=== PATIENT | male | born 1935 | race Caucasian/White ===

== ENCOUNTER 2019-08-15 13:53 | Emergency (ER) | payer MEDICARE, OTHER ==
[~2019-08-15] VITALS: Ht 177.8 cm; Wt 83.2 kg
[~2019-08-15 13:53] MED LIST: ACID REDUCER PO; ASPI-1009 PO; ATOR40TA PO; BENA5TAB39 PO; CHOL200026 PO; GLIP5TAB26 PO; HYT1T PO; LEVO25TA7 PO; OMEG-15 PO; SOTA80TA PO; VITAMIN B12 SL; WARF3TAB27 PO
[2019-08-15 14:45] LABS: BASOPHILS # (AUTO) 0.1 X10'3 (0-0.2); BASOPHILS % (AUTO) 0.8 % (0-1); EOSINOPHILS # (AUTO) 0.1 X10'3 (0-0.9); EOSINOPHILS % (AUTO) 0.8 % (0-6); HEMATOCRIT 46.4 % (42.0-52.0); HEMOGLOBIN 15.5 g/dl (14.0-17.9); LYMPHOCYTES # (AUTO) 1.9 X10'3 (1.1-4.8); LYMPHOCYTES % (AUTO) 22.3 % (21-51); MEAN CORPUSCULAR HEMOGLOBIN 31.7 PG (27.0-31.0); MEAN CORPUSCULAR HGB CONC 33.3 g/dL (33.0-36.5); MEAN PLATELET VOLUME 10.4 FL (7.4-10.4); MONOCYTES # (AUTO) 0.8 X10'3 (0-0.9); MONOCYTES % (AUTO) 9.4 % (2-12); NEUTROPHILS # (AUTO) 5.8 X10'3 (1.8-7.7); NEUTROPHILS % (AUTO) 66.7 % (42-75); PLATELET COUNT 178 X10'3 (140-440); RED BLOOD COUNT 4.89 X10'6 (4.70-6.10); RED CELL DISTRIBUTION WIDTH 15.1 % (11.5-14.5); WHITE BLOOD COUNT 8.7 X10'3 (4.5-11.0)
[2019-08-15 14:56] LABS: ALANINE AMINOTRANSFERASE 41 U/L (12-78); ALBUMIN 3.4 G/DL (3.4-5.0); ALKALINE PHOSPHATASE 83 IU/L (46-116); ANION GAP 7 (8-16); ASPARTATE AMINO TRANSFERASE 29 U/L (10-37); BILIRUBIN,TOTAL 1.2 MG/DL (0.1-1.0); BLOOD UREA NITROGEN 38 MG/DL (7-18); BUN/CREATININE RATIO 18.8 (5.4-32.0); CALCIUM 8.6 MG/DL (8.5-10.1); CHLORIDE 99 MMOL/L (99-107); CREATININE 2.02 MG/DL (0.60-1.10); GLUCOSE 269 MG/DL (70-104); POTASSIUM 4.6 MMOL/L (3.5-5.1); SODIUM 136 MMOL/L (135-145); TOTAL CARBON DIOXIDE 30.3 MMOL/L (24-32); TOTAL PROTEIN 6.7 G/DL (6.4-8.2); eGFR 32 ML/MIN
[2019-08-15] MEDS ORDERED: ringers solution, lactated 1000ml IV soln IV ONE (18:10)
[2019-08-15 18:38] LABS: CLARITY,URINE CLEAR (Clear); COLOR,URINE YELLOW (Yellow); GLUCOSE, URINE NEGATIVE (Neg); KETONES,URINE NEGATIVE (Neg); LEUKOCYTE ESTERASE ,URINE NEGATIVE (Neg); NITRITES, URINE NEGATIVE (Neg); OCCULT BLOOD,URINE NEGATIVE (Neg); PROTEIN,URINE NEGATIVE (Neg); UROBILINOGEN,URINE 0.2 E.U/dL (0.2-1.0)
[2019-08-15 18:44] LABS: UA COLLECTION TYPE URINAL
--- NOTE | 2019-08-15 18:53 | NUR ---
pt back from [facility], hooked him back up to his IVFs. He is in good spirits, visiting with me and his nurse.
[2019-08-15 19:56] VITALS: BP 164/98
== END 2019-08-15 19:57 | disposition home or self-care (01) ==
LOC: ER 13:54
DX: N17.9 Acute kidney failure, unspecified (principal); E86.0 Dehydration; I48.91 Unspecified atrial fibrillation; E78.00 Pure hypercholesterolemia, unspecified; I10 Essential (primary) hypertension; E11.9 Type 2 diabetes mellitus without complications; Z98.890 Other specified postprocedural states; Z88.5 Allergy status to narcotic agent; Z88.8 Allergy status to other drugs, medicaments and biological substances; Z79.01 Long term (current) use of anticoagulants; Z79.82 Long term (current) use of aspirin
CPT/HCPCS: 36415; 71046; 73030; 80053; 81003; 82948; 84484; 85025; 85610; 93005; 96360; 99284; J7120

== ENCOUNTER 2020-03-28 08:35 | Emergency (ER) | payer MEDICARE, OTHER ==
[~2020-03-28] VITALS: Ht 177.8 cm; Wt 84.1 kg
[2020-03-28 10:50] LABS: CLARITY,URINE CLEAR (Clear); COLOR,URINE YELLOW (Yellow); GLUCOSE, URINE NEGATIVE (Neg); KETONES,URINE NEGATIVE (Neg); LEUKOCYTE ESTERASE ,URINE NEGATIVE (Neg); NITRITES, URINE NEGATIVE (Neg); OCCULT BLOOD,URINE NEGATIVE (Neg); PROTEIN,URINE NEGATIVE (Neg); UROBILINOGEN,URINE 0.2 E.U/dL (0.2-1.0)
[2020-03-28 10:52] LABS: BASOPHILS # (AUTO) 0.1 X10'3 (0-0.2); BASOPHILS % (AUTO) 0.8 % (0-1); EOSINOPHILS % (AUTO) 0.5 % (0-6); HEMATOCRIT 44.8 % (42.0-52.0); HEMOGLOBIN 14.9 g/dl (14.0-17.9); LYMPHOCYTES # (AUTO) 1.7 X10'3 (1.1-4.8); LYMPHOCYTES % (AUTO) 17.5 % (21-51); MEAN CORPUSCULAR HEMOGLOBIN 32.2 PG (27.0-31.0); MEAN CORPUSCULAR HGB CONC 33.2 g/dL (33.0-36.5); MEAN CORPUSCULAR VOLUME 97.1 FL (78-98); MONOCYTES # (AUTO) 0.9 X10'3 (0-0.9); MONOCYTES % (AUTO) 9.6 % (2-12); NEUTROPHILS % (AUTO) 71.6 % (42-75); PLATELET COUNT 156 X10'3 (140-440); RED BLOOD COUNT 4.61 X10'6 (4.70-6.10); WHITE BLOOD COUNT 9.8 X10'3 (4.5-11.0)
[2020-03-28 10:59] LABS: UA COLLECTION TYPE CLN CATCH MIDSTREAM
[2020-03-28 11:04] LABS: PARTIAL THROMBOPLASTIN TIME 33 SECONDS (22-32)
[2020-03-28 11:06] LABS: ALANINE AMINOTRANSFERASE 17 U/L (12-78); ALBUMIN 3.7 G/DL (3.4-5.0); ALBUMIN/GLOBULIN RATIO 1.2 (1.1-1.5); ALKALINE PHOSPHATASE 82 IU/L (46-116); ANION GAP 9 (8-16); ASPARTATE AMINO TRANSFERASE 20 U/L (10-37); BILIRUBIN,TOTAL 1.6 MG/DL (0.1-1.0); BLOOD UREA NITROGEN 18 MG/DL (7-18); CALCIUM 8.8 MG/DL (8.5-10.1); CHLORIDE 105 MMOL/L (99-107); CREATININE 1.63 MG/DL (0.60-1.10); GLUCOSE 178 MG/DL (70-104); POTASSIUM 4.1 MMOL/L (3.5-5.1); SODIUM 139 MMOL/L (135-145); TOTAL CARBON DIOXIDE 25.5 MMOL/L (24-32); TOTAL PROTEIN 6.8 G/DL (6.4-8.2); eGFR 41 ML/MIN
[2020-03-28 13:33] VITALS: BP 166/96
== END 2020-03-28 13:37 | disposition home or self-care (01) ==
LOC: ER 08:36
DX: S61.511A Laceration without foreign body of right wrist, initial encounter (principal); S41.111A Laceration without foreign body of right upper arm, initial encounter; R53.1 Weakness; I48.91 Unspecified atrial fibrillation; E78.00 Pure hypercholesterolemia, unspecified; I10 Essential (primary) hypertension; E11.9 Type 2 diabetes mellitus without complications; Z98.890 Other specified postprocedural states; Z72.89 Other problems related to lifestyle; Z88.5 Allergy status to narcotic agent; Z88.8 Allergy status to other drugs, medicaments and biological substances; Z79.82 Long term (current) use of aspirin; Z79.01 Long term (current) use of anticoagulants; Z79.899 Other long term (current) drug therapy; W19.XXXA Unspecified fall, initial encounter; Y93.89 Activity, other specified; Y92.89 Other specified places as the place of occurrence of the external cause; Y99.8 Other external cause status
CPT/HCPCS: 12005; 36415; 71045; 80053; 81003; 83735; 83880; 84484; 85025; 85610; 85730; 93005; 99285

== ENCOUNTER 2020-03-29 05:40 | Emergency (ER) | payer MEDICARE, OTHER ==
[~2020-03-29] VITALS: Ht 177.8 cm; Wt 81.8 kg
[2020-03-29] MEDS ORDERED: normal saline 1000ml 1,000 ML IV ONE (06:31)
--- NOTE | 2020-03-29 06:45 | NUR ---
Note alberto in EDM - 03/29/20 at 0705 by SARAH2 Spoke to EDMD Stevan regarding fluid ordered, as BNP was 29
--- NOTE | 2020-03-29 07:05 | NUR ---
Pt's PMD called, inquiring about pt's status as pt's had reached out to him.
--- NOTE | 2020-03-29 07:05 | NUR ---
Spoke to LISA Calles regarding fluid ordered, as BNP was 2880 yesterday. States that he is comfortable waiting labs to result prior to beginning fluids.
[2020-03-29 07:40] LABS: CLARITY,URINE CLEAR (Clear); COLOR,URINE YELLOW (Yellow); GLUCOSE, URINE NEGATIVE (Neg); KETONES,URINE NEGATIVE (Neg); LEUKOCYTE ESTERASE ,URINE NEGATIVE (Neg); NITRITES, URINE NEGATIVE (Neg); OCCULT BLOOD,URINE NEGATIVE (Neg); PROTEIN,URINE NEGATIVE (Neg); UROBILINOGEN,URINE 0.2 E.U/dL (0.2-1.0)
[2020-03-29 07:40] LABS: BASOPHILS # (AUTO) 0.1 X10'3 (0-0.2); BASOPHILS % (AUTO) 0.8 % (0-1); EOSINOPHILS # (AUTO) 0.1 X10'3 (0-0.9); HEMATOCRIT 44.9 % (42.0-52.0); HEMOGLOBIN 14.9 g/dl (14.0-17.9); LYMPHOCYTES # (AUTO) 1.5 X10'3 (1.1-4.8); LYMPHOCYTES % (AUTO) 17.9 % (21-51); MEAN CORPUSCULAR HEMOGLOBIN 32.1 PG (27.0-31.0); MEAN CORPUSCULAR HGB CONC 33.2 g/dL (33.0-36.5); MEAN CORPUSCULAR VOLUME 96.5 FL (78-98); MONOCYTES # (AUTO) 0.9 X10'3 (0-0.9); MONOCYTES % (AUTO) 10.6 % (2-12); NEUTROPHILS # (AUTO) 5.8 X10'3 (1.8-7.7); NEUTROPHILS % (AUTO) 69.7 % (42-75); PLATELET COUNT 163 X10'3 (140-440); RED BLOOD COUNT 4.65 X10'6 (4.70-6.10); RED CELL DISTRIBUTION WIDTH 14.2 % (11.5-14.5); WHITE BLOOD COUNT 8.3 X10'3 (4.5-11.0)
[2020-03-29 07:43] LABS: UA COLLECTION TYPE CLN CATCH MIDSTREAM
[2020-03-29 07:52] LABS: PARTIAL THROMBOPLASTIN TIME 35 SECONDS (22-32)
[2020-03-29 07:57] LABS: ALANINE AMINOTRANSFERASE 17 U/L (12-78); ALBUMIN 3.6 G/DL (3.4-5.0); ALBUMIN/GLOBULIN RATIO 1.1 (1.1-1.5); ALKALINE PHOSPHATASE 80 IU/L (46-116); ANION GAP 12 (8-16); ASPARTATE AMINO TRANSFERASE 22 U/L (10-37); BILIRUBIN,TOTAL 1.9 MG/DL (0.1-1.0); BLOOD UREA NITROGEN 19 MG/DL (7-18); BUN/CREATININE RATIO 11.3 (5.4-32.0); CALCIUM 8.8 MG/DL (8.5-10.1); CHLORIDE 103 MMOL/L (99-107); CREATININE 1.68 MG/DL (0.60-1.10); GLUCOSE 210 MG/DL (70-104); POTASSIUM 4.1 MMOL/L (3.5-5.1); SODIUM 140 MMOL/L (135-145); TOTAL CARBON DIOXIDE 25.4 MMOL/L (24-32); TOTAL PROTEIN 6.8 G/DL (6.4-8.2); eGFR 39 ML/MIN
--- NOTE | 2020-03-29 08:23 | NUR ---
Notified by primary nurse Jario that patient has been dropped off by , noted no criteria for admission, spoke with spouse Jacki, discussed patient does not meet criteria for admission, states that patient is unable to walk and has been falling, explained that he does not meet criteria for STC and that home health could be ordered with nursing PT/OT and medical equipment technician, states that she is having difficulty getting patient up to bathroom, offer to give urinals to spouse when she picks patient up, states that she will pick patient up in 45 minutes, notified Jairo primary nurse
--- NOTE | 2020-03-29 08:23 | NUR ---
SPOKE WITH WADE FROM CASE MANAGEMENT WHO SPOKE WITH REGARDING PT. STATED WILL SET UP HOME HEALTH WITH RN, PT AND SS HOME VISITS TO HELP WITH NEEDS AT HOME. PT STATED WILL COME IN 45 MIN TO MOSAICIST . WILL CONTINUE TO MONITOR.
[2020-03-29 08:28] VITALS: BP 162/84
== END 2020-03-29 08:44 | disposition home or self-care (01) ==
LOC: ER 05:41
DX: R53.1 Weakness (principal); I48.91 Unspecified atrial fibrillation; E78.00 Pure hypercholesterolemia, unspecified; I10 Essential (primary) hypertension; E11.9 Type 2 diabetes mellitus without complications; Z98.890 Other specified postprocedural states; Z72.89 Other problems related to lifestyle; Z88.5 Allergy status to narcotic agent; Z88.8 Allergy status to other drugs, medicaments and biological substances; Z79.82 Long term (current) use of aspirin; Z79.899 Other long term (current) drug therapy
CPT/HCPCS: 36415; 71045; 80053; 81003; 83735; 85025; 85610; 85730; 93005; 99285

== ENCOUNTER 2020-04-06 13:09 | Emergency (ER) | payer MEDICARE, OTHER ==
[~2020-04-06] VITALS: Ht 175.3 cm; Wt 81.8 kg
--- NOTE | 2020-04-06 13:35 | NUR ---
NOTIFIED MEDARDO HERNANDEZ PT HER 166. PER KATHI SHE WILL COME SEE THE PT AND PT HAS PACEMAKER AND EKG WAS NORMAL.
--- NOTE | 2020-04-06 13:38 | NUR ---
pt hr 86 at this time .event discolure open for maritza feng to take a look.
--- NOTE | 2020-04-06 13:40 | NUR ---
hold communications project manager at this time mary that maritza feng can see the pt,pt denies any cp or sob and pt hr is 175 reached max.
--- NOTE | 2020-04-06 13:43 | NUR ---
spoke to maritza feng about pt hr dr moore and maritza feng discussing pt ekg and hr as per md nesbitt not reading rgt as waveform is not close if hr is high.as per maritza feng pt is fine.
[2020-04-06 13:50] LABS: CLARITY,URINE CLEAR (Clear); COLOR,URINE YELLOW (Yellow); GLUCOSE, URINE 250 mg/dl (Neg); KETONES,URINE NEGATIVE (Neg); LEUKOCYTE ESTERASE ,URINE NEGATIVE (Neg); NITRITES, URINE NEGATIVE (Neg); OCCULT BLOOD,URINE NEGATIVE (Neg); PROTEIN,URINE NEGATIVE (Neg)
[2020-04-06 13:53] LABS: UA COLLECTION TYPE VOIDED
[2020-04-06 13:54] LABS: BASOPHILS # (AUTO) 0.1 X10'3 (0-0.2); BASOPHILS % (AUTO) 1.1 % (0-1); EOSINOPHILS # (AUTO) 0.1 X10'3 (0-0.9); HEMATOCRIT 45.7 % (42.0-52.0); HEMOGLOBIN 15.2 g/dl (14.0-17.9); LYMPHOCYTES # (AUTO) 1.6 X10'3 (1.1-4.8); LYMPHOCYTES % (AUTO) 17.2 % (21-51); MEAN CORPUSCULAR HGB CONC 33.2 g/dL (33.0-36.5); MEAN CORPUSCULAR VOLUME 96.5 FL (78-98); MEAN PLATELET VOLUME 10.7 FL (7.4-10.4); MONOCYTES # (AUTO) 0.9 X10'3 (0-0.9); MONOCYTES % (AUTO) 10.1 % (2-12); NEUTROPHILS # (AUTO) 6.4 X10'3 (1.8-7.7); NEUTROPHILS % (AUTO) 70.6 % (42-75); PLATELET COUNT 167 X10'3 (140-440); RED BLOOD COUNT 4.73 X10'6 (4.70-6.10); RED CELL DISTRIBUTION WIDTH 14.3 % (11.5-14.5)
[2020-04-06 14:00] LABS: ALBUMIN 3.3 G/DL (3.4-5.0); ALKALINE PHOSPHATASE 92 IU/L (46-116); ANION GAP 5 (8-16); ASPARTATE AMINO TRANSFERASE 22 U/L (10-37); BILIRUBIN,TOTAL 1.3 MG/DL (0.1-1.0); BLOOD UREA NITROGEN 26 MG/DL (7-18); BUN/CREATININE RATIO 16.5 (5.4-32.0); CALCIUM 8.3 MG/DL (8.5-10.1); CHLORIDE 102 MMOL/L (99-107); CREATININE 1.58 MG/DL (0.60-1.10); GLUCOSE 229 MG/DL (70-104); POTASSIUM 4.3 MMOL/L (3.5-5.1); SODIUM 137 MMOL/L (135-145); TOTAL CARBON DIOXIDE 29.6 MMOL/L (24-32); TOTAL PROTEIN 6.5 G/DL (6.4-8.2); eGFR 42 ML/MIN
[2020-04-06 14:04] LABS: ALANINE AMINOTRANSFERASE < 6 U/L (12-78)
[2020-04-06] MEDS ORDERED: phytonadione inj. 5 MG in normal saline 100ml IV soln 100 ML IV ONE (14:20)
--- NOTE | 2020-04-06 14:50 | NUR ---
CAME BACK FROM MY LUNCH BREAK ,MICHAEL Floyd BEDSIDE STARTING THE VIT K DRIP CHECKED PT CT RESULT SHOWED SUBDURAL HEMOTOMA ,EMS AT [facility] AND MACHINERY VALUER PT TO TRANSFER TO [facility].
[2020-04-06 15:11] VITALS: BP 146/66
== END 2020-04-06 15:00 | disposition short-term general hospital (02) ==
LOC: ER 13:10
DX: I62.01 Nontraumatic acute subdural hemorrhage (principal); G83.11 Monoplegia of lower limb affecting right dominant side; R53.1 Weakness; R26.2 Difficulty in walking, not elsewhere classified; E11.9 Type 2 diabetes mellitus without complications; I10 Essential (primary) hypertension; I48.91 Unspecified atrial fibrillation; E78.00 Pure hypercholesterolemia, unspecified; Z79.01 Long term (current) use of anticoagulants; Z72.89 Other problems related to lifestyle; Z88.5 Allergy status to narcotic agent; Z88.8 Allergy status to other drugs, medicaments and biological substances; Z79.82 Long term (current) use of aspirin; Z79.899 Other long term (current) drug therapy
CPT/HCPCS: 36415; 70450; 80053; 81003; 84443; 85025; 85610; 86885; 86900; 86901; 93005; 96365; 99285; J3430

== ENCOUNTER 2022-09-21 14:15 | Outpatient (CLI) | payer MEDICARE, OTHER | END 2022-09-21 23:59 | disposition home or self-care (01) | LOC: VAS 14:15 | PROVIDERS: ATTEND Family Medicine | DX: M79.605 Pain in left leg (principal) | CPT/HCPCS: 93971 ==

== ENCOUNTER 2023-03-01 12:47 | Day surgery (SDC) | payer MEDICARE, OTHER ==
[2023-02-25 08:15] LABS: BASOPHILS % (AUTO) 0.6 % (0-1); EOSINOPHILS # (AUTO) 0.1 X10'3 (0-0.9); EOSINOPHILS % (AUTO) 1.4 % (0-6); HEMATOCRIT 44.5 % (42.0-52.0); HEMOGLOBIN 14.8 g/dl (14.0-17.9); LYMPHOCYTES # (AUTO) 1.8 X10'3 (1.1-4.8); LYMPHOCYTES % (AUTO) 23.1 % (21-51); MEAN CORPUSCULAR HEMOGLOBIN 32.9 PG (27.0-31.0); MEAN CORPUSCULAR HGB CONC 33.2 g/dL (33.0-36.5); MEAN PLATELET VOLUME 9.3 FL (7.4-10.4); MONOCYTES # (AUTO) 0.8 X10'3 (0-0.9); MONOCYTES % (AUTO) 9.6 % (2-12); NEUTROPHILS # (AUTO) 5.2 X10'3 (1.8-7.7); NEUTROPHILS % (AUTO) 65.3 % (42-75); PLATELET COUNT 224 X10'3 (140-440); RED BLOOD COUNT 4.49 X10'6 (4.70-6.10); RED CELL DISTRIBUTION WIDTH 15.3 % (11.5-14.5); WHITE BLOOD COUNT 7.9 X10'3 (4.5-11.0)
[2023-02-25 08:30] LABS: ALBUMIN 3.2 G/DL (3.4-5.0); ANION GAP 10 (8-16); BLOOD UREA NITROGEN 28 MG/DL (7-18); BUN/CREATININE RATIO 17.2 (10.0-20.0); CALCIUM 8.9 MG/DL (8.5-10.1); CHLORIDE 106 MMOL/L (99-107); CHOL/HDL RATIO 2.4 (0.00-4.99); CHOLESTEROL 136 MG/DL (0-200); CREATININE 1.63 MG/DL (0.60-1.10); GLUCOSE 113 MG/DL (70-104); HDL CHOLESTEROL 57 MG/DL (35-60); LDL CHOLESTEROL 65 MG/DL (50-100); POTASSIUM 4.7 MMOL/L (3.5-5.1); SODIUM 140 MMOL/L (135-145); TOTAL CARBON DIOXIDE 24.2 MMOL/L (24-32); TRIGLYCERIDES 98 MG/DL (20-135); eGFR 40 ML/MIN
[2023-02-25 08:42] LABS: APTT 29 SECONDS (22-32)
[~2023-03-01] VITALS: Ht 177.8 cm; Wt 80.3 kg
[2023-03-01] VITALS (8 sets, daily range): BP systolic 142–174; BP diastolic 78–116; PULSE 91–128; RESP 16; TEMP 98.2; O2SAT 92–97
[2023-03-01] MEDS ORDERED: LORazepam 0.5 MG tablet PO PRN (13:00)
[2023-03-01] MEDS ORDERED: normal saline 1,000 ML IV SCH (13:00)
[2023-03-01] MEDS ORDERED: diphenhydrAMINE 25mg capsule PO PRN (13:00)
[2023-03-01] MEDS ORDERED: APIX5TAB3 PO (13:32)
[2023-03-01] MEDS ORDERED: METO-384 PO (13:32)
[2023-03-01] MEDS ORDERED: SACU1TAB7 PO (13:32)
[2023-03-01] MEDS ORDERED: fentaNYL/PF 50MCG/1 ML 2ML syringe ONE ×2 (15:41→15:58)
[2023-03-01] MEDS ORDERED: iohexol 350MG/ML 100ml bottle IV ONE ×2 (15:41→16:32)
[2023-03-01] MEDS ORDERED: LIDOcaine 1% (10mg/ml)w/preservative inj. 20ml MDV ONE (15:41)
[2023-03-01] MEDS ORDERED: midazolam 1 mg/ML 2ml injection ONE ×2 (15:41→15:59)
[2023-03-01] MEDS ORDERED: DOBUTamine-DoBUTrex 500mg/D5W 250 ML IV ONE (16:07)
[2023-03-01] MEDS ORDERED: heparin 1,000unit/ml 10ml vial 10 ML ONE (16:28)
[2023-03-01] MEDS ORDERED: HYDROcodone/acetaminophen 10/325mg tab PO PRN (17:20)
[2023-03-01] MEDS ORDERED: HYDROcodone/acetaminophen 5mg/325mg tablet PO PRN (17:20)
== END 2023-03-01 18:55 | disposition home or self-care (01) ==
LOC: SSTAY O 12:47
PROVIDERS: ATTEND Student in an Organized Health Care Education/Training Program
DX: I35.0 Nonrheumatic aortic (valve) stenosis (principal); I25.10 Atherosclerotic heart disease of native coronary artery without angina pectoris; I48.0 Paroxysmal atrial fibrillation; E11.22 Type 2 diabetes mellitus with diabetic chronic kidney disease; I13.0 Hypertensive heart and chronic kidney disease with heart failure and stage 1 through stage 4 chronic kidney disease, or unspecified chronic kidney disease; I50.9 Heart failure, unspecified; N18.30 Chronic kidney disease, stage 3 unspecified; I25.2 Old myocardial infarction; I42.9 Cardiomyopathy, unspecified; E78.5 Hyperlipidemia, unspecified; I65.29 Occlusion and stenosis of unspecified carotid artery; I49.5 Sick sinus syndrome; Z86.73 Personal history of transient ischemic attack (TIA), and cerebral infarction without residual deficits; Z79.01 Long term (current) use of anticoagulants; Z88.5 Allergy status to narcotic agent; Z79.84 Long term (current) use of oral hypoglycemic drugs; Z79.899 Other long term (current) drug therapy; Z95.5 Presence of coronary angioplasty implant and graft; Z95.820 Peripheral vascular angioplasty status with implants and grafts; Z95.810 Presence of automatic (implantable) cardiac defibrillator
CPT/HCPCS: 36415; 80048; 80061; 82948; 85025; 85610; 85730; 92978; 93005; 93458; 99152; 99153; C1753; J1250; J1644; J2250; J3010; J3490; J7030; Q0163; Q9967; A6258; C1751; C1760; C1769; C1894

== ENCOUNTER 2023-04-07 08:36 | Emergency (ER) | payer MEDICARE, OTHER ==
[~2023-04-07] VITALS: Ht 177.8 cm; Wt 80.0 kg
[~2023-04-07 08:36] MED LIST changes: -ACID REDUCER PO; +APIX5TAB3 PO; -ASPI-1009 PO; -BENA5TAB39 PO; -CHOL200026 PO; +METO-384 PO; -OMEG-15 PO; +SACU1TAB7 PO; -SOTA80TA PO; -VITAMIN B12 SL; -WARF3TAB27 PO
[2023-04-07] MEDS ORDERED: normal saline 1000ML IV soln IV ONE (08:40)
[2023-04-07 08:54] VITALS: TEMP 97.7
[2023-04-07 09:09] LABS: BASOPHILS % (AUTO) 0.6 % (0-1); EOSINOPHILS # (AUTO) 0.1 X10'3 (0-0.9); EOSINOPHILS % (AUTO) 0.9 % (0-6); HEMATOCRIT 41.6 % (42.0-52.0); HEMOGLOBIN 13.7 g/dl (14.0-17.9); MEAN CORPUSCULAR HEMOGLOBIN 32.9 PG (27.0-31.0); MEAN CORPUSCULAR HGB CONC 33.1 g/dL (33.0-36.5); MEAN CORPUSCULAR VOLUME 99.5 FL (78-98); MEAN PLATELET VOLUME 9.4 FL (7.4-10.4); MONOCYTES # (AUTO) 0.6 X10'3 (0-0.9); MONOCYTES % (AUTO) 8.6 % (2-12); NEUTROPHILS # (AUTO) 5.3 X10'3 (1.8-7.7); NEUTROPHILS % (AUTO) 75.9 % (42-75); PLATELET COUNT 180 X10'3 (140-440); RED BLOOD COUNT 4.18 X10'6 (4.70-6.10); RED CELL DISTRIBUTION WIDTH 15.6 % (11.5-14.5)
[2023-04-07 09:31] LABS: ALANINE AMINOTRANSFERASE 19 U/L (12-78); ALBUMIN/GLOBULIN RATIO 0.9 (1.1-1.5); ALKALINE PHOSPHATASE 115 IU/L (46-116); ANION GAP 6 (8-16); ASPARTATE AMINO TRANSFERASE 27 U/L (10-37); BLOOD UREA NITROGEN 18 MG/DL (7-18); BUN/CREATININE RATIO 11.4 (10.0-20.0); CALCIUM 8.1 MG/DL (8.5-10.1); CHLORIDE 103 MMOL/L (99-107); CREATININE 1.58 MG/DL (0.60-1.10); GLUCOSE 154 MG/DL (70-104); POTASSIUM 4.1 MMOL/L (3.5-5.1); SODIUM 136 MMOL/L (135-145); TOTAL CARBON DIOXIDE 26.9 MMOL/L (24-32); TOTAL PROTEIN 6.5 G/DL (6.4-8.2); eCRCL 35 ML/MIN; eGFR 42 ML/MIN
[2023-04-07 09:40] LABS: MAGNESIUM 1.5 MG/DL (1.5-2.4); PRO BRAIN NATRIURETIC PEPTIDE 4524 PG/ML (0-450)
[2023-04-07 11:35] LABS: BILIRUBIN,URINE NEGATIVE (Neg); CLARITY,URINE CLEAR (Clear); COLOR,URINE YELLOW (Yellow); GLUCOSE, URINE NEGATIVE (Neg); KETONES,URINE NEGATIVE (Neg); LEUKOCYTE ESTERASE ,URINE NEGATIVE (Neg); NITRITES, URINE NEGATIVE (Neg); OCCULT BLOOD,URINE NEGATIVE (Neg); PROTEIN,URINE NEGATIVE (Neg); UROBILINOGEN,URINE 0.2 E.U/dL (0.2-1.0)
[2023-04-07 11:38] LABS: UA COLLECTION TYPE CLN CATCH MIDSTREAM
[2023-04-07 12:19] VITALS: BP 132/84; PULSE 81; RESP 16; O2SAT 97
== END 2023-04-07 12:23 | disposition home or self-care (01) ==
LOC: ER 08:37
DX: E11.649 Type 2 diabetes mellitus with hypoglycemia without coma (principal); E78.00 Pure hypercholesterolemia, unspecified; I10 Essential (primary) hypertension; E11.9 Type 2 diabetes mellitus without complications; Z88.5 Allergy status to narcotic agent; Z88.8 Allergy status to other drugs, medicaments and biological substances; Z79.899 Other long term (current) drug therapy
CPT/HCPCS: 36415; 71045; 80053; 81003; 82948; 83605; 83735; 83880; 84145; 84484; 85025; 87040; 93005; 96360; 99285; J7030

== ENCOUNTER 2023-05-24 16:28 | Inpatient (IN) | payer MEDICARE, OTHER ==
[~2023-05-24] VITALS: Ht 177.8 cm; Wt 77.4 kg
--- NOTE | 2023-05-24 18:09 | NUR ---
OHLFS NOTIFIED ABOUT CT RESULT. SBAR TO ABOUT PT STATUS. TO DO WORKUP.
[2023-05-24] MEDS ORDERED: LIDOCAINE 1%/EPI 1:100,000 inj. 10 ML multi-dose vial IJ ONE (18:35)
[2023-05-24 18:40] LABS: BASOPHILS % (AUTO) 0.2 % (0-1); EOSINOPHILS % (AUTO) 0.2 % (0-6); HEMATOCRIT 37.6 % (42.0-52.0); HEMOGLOBIN 12.4 g/dl (14.0-17.9); LYMPHOCYTES # (AUTO) 0.6 X10'3 (1.1-4.8); LYMPHOCYTES % (AUTO) 3.9 % (21-51); MEAN CORPUSCULAR VOLUME 100.2 FL (78-98); MONOCYTES # (AUTO) 1.5 X10'3 (0-0.9); MONOCYTES % (AUTO) 10.4 % (2-12); NEUTROPHILS # (AUTO) 12.1 X10'3 (1.8-7.7); NEUTROPHILS % (AUTO) 85.3 % (42-75); PLATELET COUNT 170 X10'3 (140-440); RED BLOOD COUNT 3.75 X10'6 (4.70-6.10); RED CELL DISTRIBUTION WIDTH 15.1 % (11.5-14.5); WHITE BLOOD COUNT 14.2 X10'3 (4.5-11.0)
[2023-05-24 18:51] LABS: PROTHROMBIN TIME 11.1 SECONDS (9.0-12.0)
[2023-05-24 18:58] LABS: ALANINE AMINOTRANSFERASE 24 U/L (12-78); ALBUMIN 2.5 G/DL (3.4-5.0); ALBUMIN/GLOBULIN RATIO 0.7 (1.1-1.5); ALKALINE PHOSPHATASE 97 IU/L (46-116); ANION GAP 8 (8-16); ASPARTATE AMINO TRANSFERASE 26 U/L (10-37); BILIRUBIN,TOTAL 1.4 MG/DL (0.1-1.0); BLOOD UREA NITROGEN 26 MG/DL (7-18); BUN/CREATININE RATIO 15.7 (10.0-20.0); CALCIUM 8.4 MG/DL (8.5-10.1); CHLORIDE 100 MMOL/L (99-107); CREATININE 1.66 MG/DL (0.60-1.10); GLUCOSE 233 MG/DL (70-104); POTASSIUM 3.7 MMOL/L (3.5-5.1); SODIUM 133 MMOL/L (135-145); TOTAL CARBON DIOXIDE 24.8 MMOL/L (24-32); TOTAL PROTEIN 6.2 G/DL (6.4-8.2); eCRCL 33 ML/MIN; eGFR 40 ML/MIN
[2023-05-24 19:05] LABS: PRO BRAIN NATRIURETIC PEPTIDE 8736 PG/ML (0-450)
[2023-05-24] MEDS ORDERED: piperacillin/tazo 3.375gm/50ml 50 ML IV ONE (19:15)
[2023-05-24] MEDS ORDERED: acetaminophen 1,000mg/100ml IV 100 ML IV ONE (19:20)
[2023-05-24] MEDS ORDERED: diltiazem 5mg/ml 5ml inj. IV ONE (19:30)
--- NOTE | 2023-05-24 19:57 | NUR ---
Malachi WALLER AT BS FOR LIDO INJECTION PEND SUTURES AFTER WOUND CLEANING
[2023-05-24] MEDS ORDERED: diltiazem 30mg tablet PO ONE (22:05)
--- NOTE | 2023-05-24 23:46 | NUR ---
PT WAS FOUND TRYING TO GET OUT OF BED. BEDDING WAS URINATED ON, PT WAS CLEANED AND GOWN, BEDDING WAS REPLACED, RIGHT ELBOW WAS REDRESSED R/T PT DISLODGING IT, REPOSITIONED FOR COMFORT, GAVE WARM BLANKETS AND DIMMED LIGHTS, PEND ADMIT
[2023-05-24] MEDS ORDERED: magnesium hydroxide 30ml (MOM) UD suspension PO PRN (23:55)
[2023-05-24] MEDS ORDERED: mag hydrox/Alum hydrox/simeth 30ml oral suspension PO PRN (23:55)
[2023-05-24] MEDS ORDERED: acetaminophen 650mg rectal suppository RC PRN (23:55)
[2023-05-24] MEDS ORDERED: acetaminophen 325mg tablet PO PRN ×2 (23:55)
[2023-05-24] MEDS ORDERED: diphenhydrAMINE 25mg capsule PO PRN (23:55)
[2023-05-24] MEDS ORDERED: ondansetron 4mg rapidly disintigrating tab PO PRN (23:55)
[2023-05-24] MEDS ORDERED: morphine 2 MG/ML inj. syringe IV PRN (23:55)
[2023-05-24] MEDS ORDERED: normal saline 1000ml 1,000 ML IV SCH (23:55)
[2023-05-24] MEDS ORDERED: HYDROcodone/acetaminophen 5mg/325mg tablet PO PRN (23:55)
[2023-05-24] MEDS ORDERED: diphenhydrAMINE 50 mg/ml inj IV PRN (23:55)
[2023-05-24] MEDS ORDERED: ondansetron/PF 4mg/2ml inj IV PRN (23:55)
[2023-05-24] MEDS ORDERED: ipratropium/albuterol 3ml nebule NEB PRN (23:55)
[2023-05-25] VITALS (15 sets, daily range): BP systolic 130–163; BP diastolic 56–86; PULSE 90–127; RESP 15–29; TEMP 97.4–98.5; O2SAT 96–99
[2023-05-25] MEDS ORDERED: dextrose 50%-water 50ml dispensing syringe IV PRN ×2
[2023-05-25] MEDS ORDERED: DEXTROSE 15 GM of carb/4 tabs (each vial/BOTTLE has 4 tablets) PO PRN ×2
[2023-05-25] MEDS ORDERED: glucagon, human recombinant 1mg kit SUBCUT PRN
[2023-05-25] MEDS ORDERED: MESSAGE TO PHARMACY PO ONE
[2023-05-25] MEDS ORDERED: diltiazem-D5W 125mg/125ml 125 ML IV SCH (00:05)
[2023-05-25] MEDS ORDERED: diltiazem-NS 100mg/100ml 100 ML IV SCH ×2 (00:43→01:44)
[2023-05-25 01:14] LABS: HEMOGLOBIN A1C 6.6 % (4.5-6.2)
[2023-05-25 01:23] LABS: D-DIMER 1.63 MG/L FEU (0-0.50)
[2023-05-25 01:25] LABS: MAGNESIUM 1.4 MG/DL (1.5-2.4); PHOSPHORUS 3.4 MG/DL (2.3-4.5); THYROID STIMULATING HORMONE 2.9 ulU/ml (0.34-4.50)
--- NOTE | 2023-05-25 01:51 | NUR ---
Pt arrived to the unit on [address] accompanied by ER staff. Pt was admitted s/p fall on 05/24/23 at home, A-Fib, CHF, and PNA. PMH of CVA, dementia, HTN, HLD, DM. Pt has sutures to top of head laceration with 13 sutures intact with small amount of sanguinous drainage, nurse cleaned drainage and an abrasion to bilateral knees. Pt is on tele number 20. Allergies to codeine and enoxaparin. Pt is A+O x1, walks with a walker at home. Pt denies pain or discomfort, clear speech, able to follow simple instructions. pt is on 3L oxygen via NC. PIVs 22G in Left lower FA and 20G Left upper FA. HR is irregular, Lung sounds clear and diminished throughout.
--- NOTE | 2023-05-25 04:00 | NUR ---
Pt pulled off dressing to L forearm skin tear. Nurse cleansed wound with NS, pat dry then covered with non-adherent pad and secured with Tegaderm. Photo taken and placed in chart.
--- NOTE | 2023-05-25 06:20 | NUR ---
Problems reprioritized. Patient report given, questions answered & plan of care reviewed with Alyssa KAMINSKI. Pt stable at shift change.
--- NOTE | 2023-05-25 06:39 | NUR ---
Patient in room PCU 3023. I have received report from Danyelle KAMINSKI/Patria KAMINSKI and had the opportunity to ask questions and assume patient care.
[2023-05-25] MEDS ORDERED: methylPREDNISolone sod succ 125mg/2ml vial IV ONE ×2 (08:00→12:45)
[2023-05-25] MEDS: CefTRIAXone/D5W-Rocephin 1gm 50 ML IV SCH (08:50)
[2023-05-25] MEDS: azithromycin/NS 500mg/250ml 250 ML IV SCH (10:40)
[2023-05-25] MEDS: furosemide 40mg/4ml inj IV SCH ×2 (10:41→20:32)
[2023-05-25] MEDS: docusate sod 100mg capsule PO SCH ×2 (10:42→20:17)
[2023-05-25] MEDS: pantoprazole 40mg Tablet.DR PO SCH (10:43)
[2023-05-25] MEDS ORDERED: METF-900 PO (14:07)
[2023-05-25] MEDS ORDERED: APIX2.5T PO (14:07)
[2023-05-25] MEDS ORDERED: LEVO75TA7 PO (14:07)
[2023-05-25] MEDS: metoprolol succinate 25mg (24-HOUR) SR. Tablet PO SCH (14:21)
[2023-05-25] MEDS ORDERED: ipratropium/albuterol 3ml nebule NEB PRN (19:30)
[2023-05-25] MEDS: atorvastatin 20mg tablet PO SCH (20:16)
[2023-05-25] MEDS: Terazosin 1mg capsule PO SCH (20:18)
[2023-05-25] MEDS: methylPREDNISolone sod succ/PF 40mg inj. IV SCH (20:29)
[2023-05-25] MEDS: sacubitril/valsartan 49mg-51mg tablet PO SCH (20:39)
[2023-05-25] MEDS: temazepam 15mg capsule PO PRN (20:47)
[2023-05-25] MEDS: insulin Lispro (HumaLOG) vial - multi-dose SQ SCH (21:01)
[2023-05-25] MEDS: insulin glargine (Lantus) pen - multi-dose SQ SCH (21:03)
--- NOTE | 2023-05-25 23:35 | NUR ---
Orientee Documentation: I have reviewed and agree with all interventions, medication administration, assessments performed and documented by Danyelle KAMINSKI.
[2023-05-26] VITALS (13 sets, daily range): BP systolic 94–127; BP diastolic 57–74; PULSE 82–119; RESP 14–22; TEMP 97.2–98.6; O2SAT 94–96
--- NOTE | 2023-05-26 02:10 | NUR ---
Unable to get 0200 BP due to patient confusion and aggression with attempts to his nursing staff. Pt unable to follow commands. All other VS stable. No s/sx immediate distress observed. Nurse continues with current plan of care.
--- NOTE | 2023-05-26 04:23 | NUR ---
Page sent to RT for prn breathing tx for SOB and wheezing
--- NOTE | 2023-05-26 06:14 | NUR ---
Problems reprioritized. Patient report given, questions answered & plan of care reviewed with Rachel.
--- NOTE | 2023-05-26 06:52 | NUR ---
Pt a&O x4. settled into room. Pt in SR.
[2023-05-26] MEDS: CefTRIAXone/D5W-Rocephin 1gm 50 ML IV SCH (07:26)
[2023-05-26] MEDS: pantoprazole 40mg Tablet.DR PO SCH (07:30)
[2023-05-26] MEDS: docusate sod 100mg capsule PO SCH ×2 (08:00→20:00)
[2023-05-26] MEDS: metoprolol succinate 25mg (24-HOUR) SR. Tablet PO SCH ×2 (08:00→08:26)
[2023-05-26] MEDS: methylPREDNISolone sod succ/PF 40mg inj. IV SCH ×3 (08:18→21:07)
[2023-05-26] MEDS: furosemide 40mg/4ml inj IV SCH (08:18)
[2023-05-26] MEDS: azithromycin/NS 500mg/250ml 250 ML IV SCH (08:18)
[2023-05-26] MEDS: sacubitril/valsartan 49mg-51mg tablet PO SCH ×2 (08:24→21:07)
[2023-05-26] MEDS: levoTHYROXINE 75mcg tablet PO SCH (08:26)
[2023-05-26] MEDS: insulin Lispro (HumaLOG) vial - multi-dose SQ SCH ×3 (08:32→17:21)
[2023-05-26 08:43] LABS: BASOPHILS % (AUTO) 0 % (0-1); EOSINOPHILS % (AUTO) 0 % (0-6); HEMATOCRIT 42.2 % (42.0-52.0); HEMOGLOBIN 13.8 g/dl (14.0-17.9); LYMPHOCYTES # (AUTO) 0.4 X10'3 (1.1-4.8); MEAN CORPUSCULAR HGB CONC 32.8 g/dL (33.0-36.5); MEAN CORPUSCULAR VOLUME 100.7 FL (78-98); MEAN PLATELET VOLUME 10.1 FL (7.4-10.4); MONOCYTES # (AUTO) 0.7 X10'3 (0-0.9); MONOCYTES % (AUTO) 5.7 % (2-12); NEUTROPHILS # (AUTO) 11.4 X10'3 (1.8-7.7); NEUTROPHILS % (AUTO) 91.3 % (42-75); PLATELET COUNT 179 X10'3 (140-440); RED BLOOD COUNT 4.19 X10'6 (4.70-6.10); RED CELL DISTRIBUTION WIDTH 15.1 % (11.5-14.5); WHITE BLOOD COUNT 12.5 X10'3 (4.5-11.0)
[2023-05-26 09:03] LABS: ALANINE AMINOTRANSFERASE 20 U/L (12-78); ALBUMIN/GLOBULIN RATIO 0.5 (1.1-1.5); ALKALINE PHOSPHATASE 99 IU/L (46-116); ANION GAP 13 (8-16); ASPARTATE AMINO TRANSFERASE 29 U/L (10-37); BLOOD UREA NITROGEN 33 MG/DL (7-18); BUN/CREATININE RATIO 23.1 (10.0-20.0); CALCIUM 8.2 MG/DL (8.5-10.1); CHLORIDE 101 MMOL/L (99-107); CREATININE 1.43 MG/DL (0.60-1.10); GLUCOSE 251 MG/DL (70-104); POTASSIUM 3.1 MMOL/L (3.5-5.1); SODIUM 135 MMOL/L (135-145); THYROID STIMULATING HORMONE 0.99 ulU/ml (0.34-4.50); TOTAL CARBON DIOXIDE 21.4 MMOL/L (24-32); TOTAL PROTEIN 5.9 G/DL (6.4-8.2); eCRCL 39 ML/MIN; eGFR 47 ML/MIN
[2023-05-26] MEDS ORDERED: potassium Cl 40MEQ/1/2NS 520ml 520 ML IV PRN (09:55)
[2023-05-26] MEDS ORDERED: magnesium 4gm in 100ml NS 100 ML IV PRN (09:55)
[2023-05-26] MEDS ORDERED: potassium Cl 20 mEq SR tablet PO PRN (09:55)
[2023-05-26] MEDS ORDERED: magnesium 2GM in 50ml NS 50 ML IV PRN (09:55)
[2023-05-26] MEDS ORDERED: magnesium Cl slow-release 64mg tablet PO PRN (09:55)
[2023-05-26 11:35] LABS: D-DIMER 3.63 MG/L FEU (0-0.50)
--- NOTE | 2023-05-26 12:14 | NUR ---
PAGER ID: [phone] MESSAGE: [id number] Paolo Yanez [phone]
[2023-05-26] MEDS: potassium Cl 20 mEq SR tablet PO PRN ×2 (16:23→21:08)
--- NOTE | 2023-05-26 18:23 | NUR ---
Problems reprioritized. Patient report given, questions answered & plan of care reviewed with Prudence YAMILEX. odalys sterling at dinner. Knows his name. no idea where he is or what time of day it is. Addendum: 05/26/23 at 1824 by Rachel Cardona RN Amended: Links added.
[2023-05-26] MEDS: K and/or MAG REPLACEMENT MC SCH (20:00)
[2023-05-26] MEDS ORDERED: furosemide 20 MG/2 ML vial IV SCH (20:00)
[2023-05-26] MEDS ORDERED: furosemide 40mg/4ml inj IV SCH (20:00)
[2023-05-26] MEDS ORDERED: furosemide 40mg/4ml inj IV ONE (20:00)
[2023-05-26] MEDS: atorvastatin 20mg tablet PO SCH (21:07)
[2023-05-26] MEDS: apixaban 2.5mg tablet PO SCH (21:08)
[2023-05-26] MEDS: Terazosin 1mg capsule PO SCH (21:08)
[2023-05-26] MEDS: insulin glargine (Lantus) pen - multi-dose SQ SCH (21:14)
[2023-05-26] MEDS: temazepam 15mg capsule PO PRN (22:31)
[2023-05-26] MEDS ORDERED: ziprasidone IM 20mg inj **IM only IM ONE (22:55)
[2023-05-27 02:00] VITALS: BP 102/67; PULSE 119; RESP 16; TEMP 98; O2SAT 94
--- NOTE | 2023-05-27 06:07 | NUR ---
Problems reprioritized. Patient report given, questions answered & plan of care reviewed with YAJAIRA KAMINSKI.
--- NOTE | 2023-05-27 06:11 | NUR ---
Patient in room U 3023. I have received report from Tiffani KAMINSKI and had the opportunity to ask questions and assume patient care.Pt awake and confused to place, Time and situation. Addendum: 05/27/23 at 0614 by Rachel Cardona RN Amended: Links added.
[2023-05-27 06:51] VITALS: BP 129/79; PULSE 135; RESP 20; TEMP 97.1; O2SAT 94
[2023-05-27] MEDS: CefTRIAXone/D5W-Rocephin 1gm 50 ML IV SCH (07:27)
[2023-05-27] MEDS: pantoprazole 40mg Tablet.DR PO SCH (07:30)
[2023-05-27 07:35] VITALS: RESP 20; O2SAT 94
[2023-05-27 07:49] LABS: BASOPHILS % (AUTO) 0 % (0-1); EOSINOPHILS % (AUTO) 0 % (0-6); HEMOGLOBIN 13.6 g/dl (14.0-17.9); LYMPHOCYTES # (AUTO) 0.3 X10'3 (1.1-4.8); NEUTROPHILS % (AUTO) 93.9 % (42-75)
[2023-05-27 07:50] LABS: HEMATOCRIT 41.1 % (42.0-52.0); LYMPHOCYTES % (AUTO) 1.8 % (21-51); MEAN CORPUSCULAR HEMOGLOBIN 32.9 PG (27.0-31.0); MEAN CORPUSCULAR HGB CONC 33.1 g/dL (33.0-36.5); MEAN CORPUSCULAR VOLUME 99.4 FL (78-98); MEAN PLATELET VOLUME 10.3 FL (7.4-10.4); MONOCYTES # (AUTO) 0.7 X10'3 (0-0.9); MONOCYTES % (AUTO) 4.3 % (2-12); NEUTROPHILS # (AUTO) 15.9 X10'3 (1.8-7.7); PLATELET COUNT 243 X10'3 (140-440); RED BLOOD COUNT 4.13 X10'6 (4.70-6.10); RED CELL DISTRIBUTION WIDTH 14.9 % (11.5-14.5); WHITE BLOOD COUNT 16.9 X10'3 (4.5-11.0)
[2023-05-27 07:58] VITALS: PULSE 96; RESP 20; O2SAT 95
[2023-05-27] MEDS: K and/or MAG REPLACEMENT MC SCH (08:00)
[2023-05-27] MEDS: docusate sod 100mg capsule PO SCH (08:00)
[2023-05-27] MEDS: metoprolol succinate 25mg (24-HOUR) SR. Tablet PO SCH ×2 (08:00→08:14)
[2023-05-27] MEDS ORDERED: furosemide 20 MG/2 ML vial IV SCH ×2 (08:00)
[2023-05-27 08:08] VITALS: PULSE 98; RESP 16
[2023-05-27] MEDS: azithromycin/NS 500mg/250ml 250 ML IV SCH (08:13)
[2023-05-27] MEDS: apixaban 2.5mg tablet PO SCH (08:14)
[2023-05-27] MEDS: levoTHYROXINE 75mcg tablet PO SCH (08:14)
[2023-05-27] MEDS: methylPREDNISolone sod succ/PF 40mg inj. IV SCH (08:14)
[2023-05-27 08:16] LABS: ALANINE AMINOTRANSFERASE 33 U/L (12-78); ALBUMIN 2.2 G/DL (3.4-5.0); ALBUMIN/GLOBULIN RATIO 0.5 (1.1-1.5); ALKALINE PHOSPHATASE 99 IU/L (46-116); ANION GAP 13 (8-16); ASPARTATE AMINO TRANSFERASE 35 U/L (10-37); BILIRUBIN,TOTAL 0.7 MG/DL (0.1-1.0); BLOOD UREA NITROGEN 45 MG/DL (7-18); BUN/CREATININE RATIO 24.6 (10.0-20.0); CALCIUM 8.6 MG/DL (8.5-10.1); CHLORIDE 102 MMOL/L (99-107); CREATININE 1.83 MG/DL (0.60-1.10); GLUCOSE 230 MG/DL (70-104); MAGNESIUM 1.6 MG/DL (1.5-2.4); SODIUM 140 MMOL/L (135-145); TOTAL CARBON DIOXIDE 25.4 MMOL/L (24-32); TOTAL PROTEIN 6.3 G/DL (6.4-8.2); eCRCL 30 ML/MIN; eGFR 35 ML/MIN
[2023-05-27 08:17] LABS: POTASSIUM 2.9 MMOL/L (3.5-5.1)
[2023-05-27] MEDS: sacubitril/valsartan 49mg-51mg tablet PO SCH (08:17)
[2023-05-27] MEDS: insulin Lispro (HumaLOG) vial - multi-dose SQ SCH (08:30)
[2023-05-27 09:13] LABS: D-DIMER 4.59 MG/L FEU (0-0.50)
[2023-05-27 11:00] VITALS: BP 121/71; PULSE 102; RESP 18; TEMP 97.6; O2SAT 98
--- NOTE | 2023-05-27 13:14 | NUR ---
Pt and all belongings including hearing aides x 2 and glasses with Pt and transport. at bedside. report called to sharda KAMINSKI at [facility]. Addendum: 05/27/23 at 1316 by Rachel Cardona RN Amended: Links added.
== END 2023-05-27 13:14 | DRG 85 ==
LOC: ER 16:28 → ED HOLD 23:41 → PCU 3S 05-25 01:40 → SUR 3N 05-26 16:44 → PCU 3S 05-26 16:45
PROVIDERS: ADMIT Family Medicine; ATTEND Internal Medicine
PROC: 0HQ0XZZ Repair Scalp Skin, External Approach (ICD-10-PCS; principal; 2023-05-24)
DX: S06.5X0A Traumatic subdural hemorrhage without loss of consciousness, initial encounter (principal); I50.33 Acute on chronic diastolic (congestive) heart failure; J18.9 Pneumonia, unspecified organism; J44.1 Chronic obstructive pulmonary disease with (acute) exacerbation; E87.1 Hypo-osmolality and hyponatremia; N17.9 Acute kidney failure, unspecified; I13.0 Hypertensive heart and chronic kidney disease with heart failure and stage 1 through stage 4 chronic kidney disease, or unspecified chronic kidney disease; J44.0 Chronic obstructive pulmonary disease with (acute) lower respiratory infection; W18.39XA Other fall on same level, initial encounter; D64.9 Anemia, unspecified; E11.22 Type 2 diabetes mellitus with diabetic chronic kidney disease; N18.30 Chronic kidney disease, stage 3 unspecified; I25.10 Atherosclerotic heart disease of native coronary artery without angina pectoris; N40.0 Benign prostatic hyperplasia without lower urinary tract symptoms; S01.01XA Laceration without foreign body of scalp, initial encounter; E11.51 Type 2 diabetes mellitus with diabetic peripheral angiopathy without gangrene; E78.00 Pure hypercholesterolemia, unspecified; I48.91 Unspecified atrial fibrillation; Z20.822 Contact with and (suspected) exposure to COVID-19; D72.829 Elevated white blood cell count, unspecified; I50.9 Heart failure, unspecified; Y93.89 Activity, other specified; Y92.89 Other specified places as the place of occurrence of the external cause; Y99.8 Other external cause status; Z86.73 Personal history of transient ischemic attack (TIA), and cerebral infarction without residual deficits; Z95.5 Presence of coronary angioplasty implant and graft; Z79.01 Long term (current) use of anticoagulants; Z87.891 Personal history of nicotine dependence; Z79.84 Long term (current) use of oral hypoglycemic drugs; Z79.899 Other long term (current) drug therapy; Z88.5 Allergy status to narcotic agent
CPT/HCPCS: 36415; 70450; 71045; 72125; 80053; 82948; 83036; 83605; 83735; 83880; 84100; 84145; 84443; 84484; 85025; 85379; 85610; 87040; 87081; 87088; 87811; 93306; 94640; 94760; 97161; 97530; 97535; 99285; A4615; A6212; A6258; A6449; G0378; J0131; J0456; J0696; J1815; J1940; J2543; J2920; J2930; J3486; J3490; J7030

== ENCOUNTER 2023-06-01 09:59 | Inpatient (IN) | payer MEDICARE, OTHER ==
[~2023-06-01] VITALS: Ht 162.6 cm; Wt 72.0 kg
[~2023-06-01 09:59] MED LIST changes: +APIX2.5T PO; -APIX5TAB3 PO; -GLIP5TAB26 PO; -LEVO25TA7 PO; +LEVO75TA7 PO; +METF-900 PO
[2023-06-01] MEDS ORDERED: normal saline 1000ML IV soln IVB ONE (10:10)
[2023-06-01] MEDS ORDERED: CefTRIAXone/D5W-Rocephin 1gm 50 ML IV ONE (10:10)
[2023-06-01 10:27] LABS: BASOPHILS % (AUTO) 0.3 % (0-1); EOSINOPHILS # (AUTO) 0.1 X10'3 (0-0.9); EOSINOPHILS % (AUTO) 0.9 % (0-6); HEMATOCRIT 38.1 % (42.0-52.0); HEMOGLOBIN 12.5 g/dl (14.0-17.9); LYMPHOCYTES # (AUTO) 0.6 X10'3 (1.1-4.8); LYMPHOCYTES % (AUTO) 5.5 % (21-51); MEAN CORPUSCULAR HEMOGLOBIN 32.7 PG (27.0-31.0); MEAN CORPUSCULAR HGB CONC 32.9 g/dL (33.0-36.5); MEAN CORPUSCULAR VOLUME 99.4 FL (78-98); MEAN PLATELET VOLUME 9.2 FL (7.4-10.4); MONOCYTES # (AUTO) 0.9 X10'3 (0-0.9); MONOCYTES % (AUTO) 7.9 % (2-12); NEUTROPHILS # (AUTO) 9.8 X10'3 (1.8-7.7); NEUTROPHILS % (AUTO) 85.4 % (42-75); PLATELET COUNT 321 X10'3 (140-440); RED BLOOD COUNT 3.83 X10'6 (4.70-6.10); RED CELL DISTRIBUTION WIDTH 14.9 % (11.5-14.5); WHITE BLOOD COUNT 11.5 X10'3 (4.5-11.0)
[2023-06-01 10:43] LABS: ALBUMIN 2.4 G/DL (3.4-5.0); ALBUMIN/GLOBULIN RATIO 0.6 (1.1-1.5); ANION GAP 8 (8-16); ASPARTATE AMINO TRANSFERASE 35 U/L (10-37); BILIRUBIN,TOTAL 1.1 MG/DL (0.1-1.0); BLOOD UREA NITROGEN 44 MG/DL (7-18); BUN/CREATININE RATIO 24.4 (10.0-20.0); CALCIUM 8.5 MG/DL (8.5-10.1); CHLORIDE 102 MMOL/L (99-107); GLUCOSE 330 MG/DL (70-104); MAGNESIUM 1.7 MG/DL (1.5-2.4); POTASSIUM 3.9 MMOL/L (3.5-5.1); SODIUM 138 MMOL/L (135-145); TOTAL CARBON DIOXIDE 28.2 MMOL/L (24-32); TOTAL PROTEIN 6.2 G/DL (6.4-8.2); eCRCL 25 ML/MIN; eGFR 36 ML/MIN
[2023-06-01 10:44] LABS: ALANINE AMINOTRANSFERASE 31 U/L (12-78); ALKALINE PHOSPHATASE 97 IU/L (46-116)
[2023-06-01 11:26] LABS: BILIRUBIN,URINE NEGATIVE (Neg); CLARITY,URINE CLOUDY (Clear); COLOR,URINE YELLOW (Yellow); GLUCOSE, URINE 250 mg/dl (Neg); KETONES,URINE NEGATIVE (Neg); LEUKOCYTE ESTERASE ,URINE NEGATIVE (Neg); NITRITES, URINE NEGATIVE (Neg); OCCULT BLOOD,URINE LARGE (Neg); PH,URINE 5.5 (4.8-8.0); PROTEIN,URINE TRACE mg/dl (Neg); UROBILINOGEN,URINE 0.2 E.U/dL (0.2-1.0)
--- NOTE | 2023-06-01 11:30 | NUR ---
DR BUTCHER NOTIFIED PT HR IN 140S-150S, EKG BEING PERFORMED. NO NEW ORDERS
[2023-06-01 12:09] LABS: UA COLLECTION TYPE FOLEY CATH
[2023-06-01 12:11] LABS: HYALINE CASTS 0-3 /LPF (NEGATIVE); MUCUS STRANDS FEW /LPF (Neg); RBC,URINE TNTC /HPF (0-2); SQUAMOUS EPITHELIAL CELL,UR FEW /LPF (FEW)
[2023-06-01 12:12] LABS: BACTERIA,URINE FEW /HPF (Neg); TRANSITIONAL EPI CELLS,URINE FEW /HPF; WBC,URINE 0-4 /HPF (0-4)
[2023-06-01] MEDS ORDERED: metoprolol tartrate 1mg/ml inj IV ONE ×2 (12:40→18:10)
--- NOTE | 2023-06-01 12:46 | NUR ---
AT DR BUTCHER'S REQUEST CALL TO TO SEE WHICH MEDS GIVEN THIS AM PANTOPRAZOLE 40MG TYLENOL 650MG COLACE 100MG ELIQUIS 2.5MG ENTRESTO FUROSEMIDE 20 MG METOPROLOL ER 50MG MIRALAX PREDNISONE 20 MG
[2023-06-01] MEDS ORDERED: magnesium 4gm in 100ml NS 100 ML IV PRN (13:20)
[2023-06-01] MEDS ORDERED: potassium Cl 40MEQ/1/2NS 520ml 520 ML IV PRN (13:20)
[2023-06-01] MEDS ORDERED: magnesium Cl slow-release 64mg tablet PO PRN (13:20)
[2023-06-01] MEDS ORDERED: acetaminophen 325mg tablet PO PRN (13:20)
[2023-06-01] MEDS ORDERED: potassium Cl 20 mEq SR tablet PO PRN ×2 (13:20)
[2023-06-01] MEDS ORDERED: ondansetron/PF 4mg/2ml inj IV PRN (13:20)
[2023-06-01] MEDS ORDERED: magnesium 2GM in 50ml NS 50 ML IV PRN (13:20)
[2023-06-01] MEDS ORDERED: metoprolol succinate 25mg (24-HOUR) SR. Tablet PO SCH (13:25)
[2023-06-01] MEDS: normal saline 1000ml 1,000 ML IV SCH ×2 (13:31→23:32)
[2023-06-01] MEDS: acetaminophen 325mg tablet PO SCH ×2 (15:37→23:33)
[2023-06-01] MEDS ORDERED: GLIP10TA11 PO (15:45)
--- NOTE | 2023-06-01 16:13 | NUR ---
PT PLACED ON HOSPITAL BED
--- NOTE | 2023-06-01 19:06 | NUR ---
ATTEMPTED TO CALL REPORT NURSE IN PT ROOM WILL F/U.
[2023-06-01 20:00] VITALS: BP 122/65; PULSE 93; RESP 19; TEMP 97.5; O2SAT 93
[2023-06-01] MEDS: heparin, porcine 5000 units/ml vial SQ SCH (20:32)
--- NOTE | 2023-06-01 23:17 | NUR ---
Received patient from ER in hospital bed at 1999, telemetry leads applied, VSS, afebrile, at bedside. Patient oriented to self only. TABS applied for patient safety.
[2023-06-02] VITALS (9 sets, daily range): BP systolic 118–138; BP diastolic 56–77; PULSE 73–100; RESP 11–18; TEMP 97–97.8; O2SAT 94–100
[2023-06-02] MEDS: HYDROcodone/acetaminophen 5mg/325mg tablet PO PRN ×4 (02:37→20:38)
--- NOTE | 2023-06-02 02:37 | NUR ---
norco 5 given at 2200 on 06/01, did not save on emar.
--- NOTE | 2023-06-02 03:44 | NUR ---
Patient HR up to 130-150. BP 127/74, Dr. Cherry notified, received order for 1 time dose of Metoprolol 25 mg
[2023-06-02] MEDS ORDERED: metoprolol tartrate 50mg tablet PO ONE (03:50)
--- NOTE | 2023-06-02 06:44 | NUR ---
Patient report given, questions answered & plan of care reviewed with YAMILEX Oneal
[2023-06-02] MEDS: acetaminophen 325mg tablet PO SCH ×3 (07:59→19:31)
[2023-06-02] MEDS: metoprolol succinate 25mg (24-HOUR) SR. Tablet PO SCH (07:59)
[2023-06-02] MEDS: heparin, porcine 5000 units/ml vial SQ SCH ×2 (08:00→19:36)
--- NOTE | 2023-06-02 08:25 | NUR ---
Pt keeps saying help me help me. Pulled out PIV, keeps pulling at catheter now bleeding, pulls off tele. says he is in pain. Given pain meds. Asked if he needs to have BM says yes put on bed pelayo- no BM. Mittens placed
[2023-06-02 09:50] LABS: BASOPHILS % (AUTO) 0 % (0-1); EOSINOPHILS # (AUTO) 0.2 X10'3 (0-0.9); EOSINOPHILS % (AUTO) 1.3 % (0-6); HEMATOCRIT 35.7 % (42.0-52.0); HEMOGLOBIN 11.6 g/dl (14.0-17.9); LYMPHOCYTES # (AUTO) 0.8 X10'3 (1.1-4.8); LYMPHOCYTES % (AUTO) 6.5 % (21-51); MEAN CORPUSCULAR HEMOGLOBIN 32.2 PG (27.0-31.0); MEAN CORPUSCULAR HGB CONC 32.3 g/dL (33.0-36.5); MEAN CORPUSCULAR VOLUME 99.6 FL (78-98); MEAN PLATELET VOLUME 9.4 FL (7.4-10.4); MONOCYTES % (AUTO) 8.6 % (2-12); NEUTROPHILS # (AUTO) 9.9 X10'3 (1.8-7.7); NEUTROPHILS % (AUTO) 83.6 % (42-75); PLATELET COUNT 303 X10'3 (140-440); RED BLOOD COUNT 3.59 X10'6 (4.70-6.10); RED CELL DISTRIBUTION WIDTH 14.7 % (11.5-14.5); WHITE BLOOD COUNT 11.8 X10'3 (4.5-11.0)
[2023-06-02 09:58] LABS: BASOPHILS % (AUTO) 0 % (0-1); EOSINOPHILS # (AUTO) 0.2 X10'3 (0-0.9); EOSINOPHILS % (AUTO) 1.4 % (0-6); HEMATOCRIT 34.9 % (42.0-52.0); HEMOGLOBIN 11.4 g/dl (14.0-17.9); LYMPHOCYTES # (AUTO) 0.8 X10'3 (1.1-4.8); MEAN CORPUSCULAR HEMOGLOBIN 32.7 PG (27.0-31.0); MEAN CORPUSCULAR HGB CONC 32.7 g/dL (33.0-36.5); MEAN CORPUSCULAR VOLUME 99.9 FL (78-98); MEAN PLATELET VOLUME 9.5 FL (7.4-10.4); MONOCYTES % (AUTO) 8.1 % (2-12); NEUTROPHILS # (AUTO) 9.9 X10'3 (1.8-7.7); NEUTROPHILS % (AUTO) 83.5 % (42-75); PLATELET COUNT 298 X10'3 (140-440); RED BLOOD COUNT 3.49 X10'6 (4.70-6.10); RED CELL DISTRIBUTION WIDTH 14.8 % (11.5-14.5); WHITE BLOOD COUNT 11.8 X10'3 (4.5-11.0)
[2023-06-02 10:18] LABS: ALANINE AMINOTRANSFERASE 31 U/L (12-78); ALBUMIN 2.1 G/DL (3.4-5.0); ALBUMIN/GLOBULIN RATIO 0.6 (1.1-1.5); ALKALINE PHOSPHATASE 94 IU/L (46-116); ANION GAP 6 (8-16); ASPARTATE AMINO TRANSFERASE 27 U/L (10-37); BLOOD UREA NITROGEN 38 MG/DL (7-18); BUN/CREATININE RATIO 24.1 (10.0-20.0); CALCIUM 8.2 MG/DL (8.5-10.1); CHLORIDE 105 MMOL/L (99-107); CREATININE 1.58 MG/DL (0.60-1.10); GLUCOSE 315 MG/DL (70-104); POTASSIUM 3.9 MMOL/L (3.5-5.1); SODIUM 140 MMOL/L (135-145); TOTAL CARBON DIOXIDE 28.7 MMOL/L (24-32); TOTAL PROTEIN 5.6 G/DL (6.4-8.2); eCRCL 29 ML/MIN; eGFR 42 ML/MIN
--- NOTE | 2023-06-02 10:45 | NUR ---
Unable to admissions paperwork as pt is confused
--- NOTE | 2023-06-02 13:03 | NUR ---
[facility] called to come interrogate PPM ordered by resident .
[2023-06-02] MEDS: diltiazem 30mg tablet PO SCH ×2 (15:00→19:30)
--- NOTE | 2023-06-02 16:44 | NUR ---
Yohan at [employer] says [facility] is working fine
[2023-06-03] VITALS (7 sets, daily range): BP systolic 99–156; BP diastolic 55–95; PULSE 57–107; RESP 15–19; TEMP 97.5–98.1; O2SAT 90–96
[2023-06-03] MEDS ORDERED: prazosin 1mg capsule PO SCH
[2023-06-03] MEDS: diltiazem 30mg tablet PO SCH ×4 (02:00→20:46)
[2023-06-03] MEDS: acetaminophen 325mg tablet PO SCH ×4 (02:00→20:00)
--- NOTE | 2023-06-03 06:34 | NUR ---
Patient report given, questions answered & plan of care reviewed with YAMILEX Oneal
[2023-06-03 08:38] LABS: BASOPHILS % (AUTO) 0.2 % (0-1); EOSINOPHILS # (AUTO) 0.2 X10'3 (0-0.9); EOSINOPHILS % (AUTO) 1.9 % (0-6); HEMATOCRIT 34.9 % (42.0-52.0); HEMOGLOBIN 11.5 g/dl (14.0-17.9); LYMPHOCYTES # (AUTO) 1.4 X10'3 (1.1-4.8); LYMPHOCYTES % (AUTO) 12.3 % (21-51); MEAN CORPUSCULAR HEMOGLOBIN 32.7 PG (27.0-31.0); MEAN CORPUSCULAR HGB CONC 32.9 g/dL (33.0-36.5); MEAN CORPUSCULAR VOLUME 99.4 FL (78-98); MEAN PLATELET VOLUME 9.4 FL (7.4-10.4); MONOCYTES # (AUTO) 1.2 X10'3 (0-0.9); MONOCYTES % (AUTO) 10.6 % (2-12); NEUTROPHILS # (AUTO) 8.5 X10'3 (1.8-7.7); PLATELET COUNT 290 X10'3 (140-440); RED BLOOD COUNT 3.51 X10'6 (4.70-6.10); RED CELL DISTRIBUTION WIDTH 14.7 % (11.5-14.5); WHITE BLOOD COUNT 11.3 X10'3 (4.5-11.0)
[2023-06-03] MEDS: metoprolol succinate 25mg (24-HOUR) SR. Tablet PO SCH (09:02)
[2023-06-03] MEDS: heparin, porcine 5000 units/ml vial SQ SCH (09:03)
[2023-06-03 09:04] LABS: ALANINE AMINOTRANSFERASE 26 U/L (12-78); ALBUMIN 2.1 G/DL (3.4-5.0); ALBUMIN/GLOBULIN RATIO 0.6 (1.1-1.5); ALKALINE PHOSPHATASE 95 IU/L (46-116); ANION GAP 7 (8-16); ASPARTATE AMINO TRANSFERASE 21 U/L (10-37); BILIRUBIN,TOTAL 0.8 MG/DL (0.1-1.0); BLOOD UREA NITROGEN 32 MG/DL (7-18); BUN/CREATININE RATIO 22.4 (10.0-20.0); CALCIUM 8.3 MG/DL (8.5-10.1); CHLORIDE 107 MMOL/L (99-107); CREATININE 1.43 MG/DL (0.60-1.10); GLUCOSE 253 MG/DL (70-104); POTASSIUM 4.2 MMOL/L (3.5-5.1); SODIUM 140 MMOL/L (135-145); TOTAL CARBON DIOXIDE 26.1 MMOL/L (24-32); TOTAL PROTEIN 5.5 G/DL (6.4-8.2); eCRCL 32 ML/MIN; eGFR 47 ML/MIN
[2023-06-03] MEDS: HYDROcodone/acetaminophen 5mg/325mg tablet PO PRN ×3 (10:04→20:46)
[2023-06-03] MEDS: CefTRIAXone 2gm/D5W 50ml BAG 50 ML IV SCH (10:35)
--- NOTE | 2023-06-03 12:25 | NUR ---
Malnutrition consult: Pt unsure of wt loss though also reports 2-13 lb wt loss with decreased appetite/PO intake per malnutrition risk screen with RN. Per EMR pt A/O x 1 and confused therefore unable to obtain information from pt. Pt with scaled wt hx ranging 77.4-81.82 kg 04/06/2020-05/25/23, current documented wt is 72 kg however is pt stated. Per EMR pt presented to ED from [facility]. RD called Jovanni to obtain wt and PO hx though forced to leave a message, awaiting TC back. Pt currently on a heart healthy diet and overall eating fair for age, documented with average 42% PO intake while receiving max assistance. Pt with no documented significant edema though with severe decrease in muscle strength. Pt appears well developed well nourished per ED report. Pt currently lacks a minimum of two criteria for malnutrition though will continue to follow and further monitor s/s of malnutrition as more information is available. Addendum: 06/03/23 at [address] Amended: Links added.
[2023-06-03] MEDS: normal saline 1000ml 1,000 ML IV SCH (13:20)
[2023-06-03] MEDS: ciprofloxacin 250mg tablet PO SCH ×2 (14:23→20:46)
[2023-06-03 15:13] LABS: BASOPHILS % (AUTO) 0.1 % (0-1); EOSINOPHILS # (AUTO) 0.2 X10'3 (0-0.9); EOSINOPHILS % (AUTO) 2.1 % (0-6); HEMATOCRIT 35.9 % (42.0-52.0); HEMOGLOBIN 11.7 g/dl (14.0-17.9); LYMPHOCYTES # (AUTO) 1.3 X10'3 (1.1-4.8); LYMPHOCYTES % (AUTO) 12.6 % (21-51); MEAN CORPUSCULAR HEMOGLOBIN 32.7 PG (27.0-31.0); MEAN CORPUSCULAR HGB CONC 32.5 g/dL (33.0-36.5); MEAN CORPUSCULAR VOLUME 100.4 FL (78-98); MEAN PLATELET VOLUME 9.6 FL (7.4-10.4); MONOCYTES # (AUTO) 1.1 X10'3 (0-0.9); MONOCYTES % (AUTO) 10.5 % (2-12); NEUTROPHILS # (AUTO) 7.6 X10'3 (1.8-7.7); NEUTROPHILS % (AUTO) 74.7 % (42-75); PLATELET COUNT 290 X10'3 (140-440); RED BLOOD COUNT 3.58 X10'6 (4.70-6.10); RED CELL DISTRIBUTION WIDTH 14.7 % (11.5-14.5); WHITE BLOOD COUNT 10.2 X10'3 (4.5-11.0)
[2023-06-03] MEDS: apixaban 2.5mg tablet PO SCH (20:46)
[2023-06-03] MEDS: Terazosin 1mg capsule PO SCH (20:46)
[2023-06-03] MEDS: atorvastatin 20mg tablet PO SCH (20:47)
[2023-06-04] VITALS (9 sets, daily range): BP systolic 115–138; BP diastolic 56–87; PULSE 78–101; RESP 15–20; TEMP 97.3–97.7; O2SAT 92–99
[2023-06-04] MEDS ORDERED: prazosin 1mg capsule PO ONE (01:45)
[2023-06-04] MEDS: diltiazem 30mg tablet PO SCH ×4 (02:00→21:15)
[2023-06-04] MEDS: acetaminophen 325mg tablet PO SCH ×4 (02:11→21:14)
--- NOTE | 2023-06-04 02:28 | NUR ---
Pt. refused to take his Diltiazem after it was mixed with applesauce, was unable to return med.
--- NOTE | 2023-06-04 04:00 | NUR ---
I AGREE WITH SCHOOL RESOURCE OFFICER'S ASSESSMENT
[2023-06-04] MEDS: HYDROcodone/acetaminophen 5mg/325mg tablet PO PRN ×3 (04:21→18:21)
[2023-06-04 06:19] LABS: BASOPHILS % (AUTO) 0.2 % (0-1); EOSINOPHILS # (AUTO) 0.3 X10'3 (0-0.9); EOSINOPHILS % (AUTO) 3.4 % (0-6); LYMPHOCYTES # (AUTO) 0.9 X10'3 (1.1-4.8); LYMPHOCYTES % (AUTO) 9.6 % (21-51); MEAN CORPUSCULAR HEMOGLOBIN 33.2 PG (27.0-31.0); MEAN CORPUSCULAR HGB CONC 33.2 g/dL (33.0-36.5); MEAN CORPUSCULAR VOLUME 100.1 FL (78-98); MEAN PLATELET VOLUME 9.6 FL (7.4-10.4); MONOCYTES % (AUTO) 10.6 % (2-12); NEUTROPHILS # (AUTO) 7.3 X10'3 (1.8-7.7); NEUTROPHILS % (AUTO) 76.2 % (42-75); PLATELET COUNT 253 X10'3 (140-440); RED CELL DISTRIBUTION WIDTH 14.7 % (11.5-14.5); WHITE BLOOD COUNT 9.5 X10'3 (4.5-11.0)
--- NOTE | 2023-06-04 06:38 | NUR ---
Patient report given to Jm KAMINSKI questions answered & plan of care reviewed with .
[2023-06-04 06:43] LABS: ALANINE AMINOTRANSFERASE 25 U/L (12-78); ALBUMIN/GLOBULIN RATIO 0.6 (1.1-1.5); ALKALINE PHOSPHATASE 94 IU/L (46-116); ANION GAP 4 (8-16); ASPARTATE AMINO TRANSFERASE 19 U/L (10-37); BILIRUBIN,TOTAL 0.9 MG/DL (0.1-1.0); BLOOD UREA NITROGEN 30 MG/DL (7-18); BUN/CREATININE RATIO 21.3 (10.0-20.0); CALCIUM 8.3 MG/DL (8.5-10.1); CHLORIDE 105 MMOL/L (99-107); CREATININE 1.41 MG/DL (0.60-1.10); GLUCOSE 271 MG/DL (70-104); POTASSIUM 4.2 MMOL/L (3.5-5.1); SODIUM 137 MMOL/L (135-145); TOTAL CARBON DIOXIDE 27.7 MMOL/L (24-32); TOTAL PROTEIN 5.4 G/DL (6.4-8.2); eCRCL 32 ML/MIN; eGFR 48 ML/MIN
[2023-06-04] MEDS: metoprolol succinate 25mg (24-HOUR) SR. Tablet PO SCH ×2 (09:48→09:52)
[2023-06-04] MEDS: apixaban 2.5mg tablet PO SCH ×2 (09:48→21:15)
[2023-06-04] MEDS: CefTRIAXone 2gm/D5W 50ml BAG 50 ML IV SCH (09:51)
[2023-06-04] MEDS: levoTHYROXINE 75mcg tablet PO SCH (09:51)
[2023-06-04] MEDS: ciprofloxacin 250mg tablet PO SCH ×2 (10:42→21:15)
[2023-06-04] MEDS: Terazosin 1mg capsule PO SCH (21:14)
[2023-06-04] MEDS: atorvastatin 20mg tablet PO SCH (21:14)
[2023-06-04] MEDS ORDERED: dextrose 50%-water 50ml dispensing syringe IV PRN (23:20)
[2023-06-04] MEDS ORDERED: DEXTROSE 15 GM of carb/4 tabs (each vial/BOTTLE has 4 tablets) PO PRN ×2 (23:20)
[2023-06-04] MEDS ORDERED: glucagon, human recombinant 1mg kit SUBCUT PRN (23:20)
[2023-06-04] MEDS ORDERED: MESSAGE TO PHARMACY PO ONE (23:20)
[2023-06-04] MEDS: insulin Lispro (HumaLOG) vial - multi-dose SQ SCH (23:49)
[2023-06-05] VITALS (15 sets, daily range): BP systolic 93–127; BP diastolic 54–71; PULSE 81–131; RESP 14–24; TEMP 97.3–97.9; O2SAT 93–96
[2023-06-05] MEDS: normal saline 1000ml 1,000 ML IV SCH (02:18)
[2023-06-05] MEDS: HYDROcodone/acetaminophen 5mg/325mg tablet PO PRN ×3 (02:49→19:02)
[2023-06-05] MEDS: acetaminophen 325mg tablet PO SCH ×4 (02:57→20:09)
[2023-06-05] MEDS: diltiazem 30mg tablet PO SCH ×4 (02:58→20:09)
--- NOTE | 2023-06-05 04:25 | NUR ---
ICE CREAM MIXER documentation: I have reviewed and agree with all assessment performed and documented by JOSUE Bellamy
--- NOTE | 2023-06-05 06:45 | NUR ---
Patient in room PCU 3017. I have received report from MEENAKSHI Headley and had the opportunity to ask questions and assume patient care.
[2023-06-05] MEDS: levoTHYROXINE 75mcg tablet PO SCH (07:34)
[2023-06-05] MEDS: apixaban 2.5mg tablet PO SCH ×2 (07:34→20:09)
[2023-06-05] MEDS: metoprolol succinate 25mg (24-HOUR) SR. Tablet PO SCH ×2 (07:37)
[2023-06-05 08:31] LABS: ALANINE AMINOTRANSFERASE 24 U/L (12-78); ALBUMIN 2.2 G/DL (3.4-5.0); ALBUMIN/GLOBULIN RATIO 0.6 (1.1-1.5); ALKALINE PHOSPHATASE 101 IU/L (46-116); ANION GAP 10 (8-16); ASPARTATE AMINO TRANSFERASE 25 U/L (10-37); BILIRUBIN,TOTAL 0.9 MG/DL (0.1-1.0); BLOOD UREA NITROGEN 26 MG/DL (7-18); BUN/CREATININE RATIO 19.8 (10.0-20.0); CALCIUM 8.6 MG/DL (8.5-10.1); CHLORIDE 102 MMOL/L (99-107); CREATININE 1.31 MG/DL (0.60-1.10); GLUCOSE 201 MG/DL (70-104); POTASSIUM 4.5 MMOL/L (3.5-5.1); SODIUM 136 MMOL/L (135-145); TOTAL CARBON DIOXIDE 24.1 MMOL/L (24-32); eCRCL 35 ML/MIN; eGFR 52 ML/MIN
[2023-06-05] MEDS ORDERED: albuterol 2.5 MG/3 ML nebule NEB PRN (09:40)
[2023-06-05] MEDS ORDERED: ipratropium/albuterol 3ml nebule NEB PRN (09:40)
[2023-06-05] MEDS ORDERED: ipratropium/albuterol 3ml nebule NEB SCH (09:58)
[2023-06-05] MEDS ORDERED: furosemide 20MG tablet PO ONE (09:59)
[2023-06-05] MEDS: insulin Lispro (HumaLOG) vial - multi-dose SQ SCH (10:14)
[2023-06-05] MEDS: ciprofloxacin 250mg tablet PO SCH (10:18)
[2023-06-05] MEDS ORDERED: furosemide 20MG tablet PO SCH (11:00)
[2023-06-05] MEDS: ipratropium/albuterol 3ml nebule NEB SCH ×4 (11:00→23:49)
[2023-06-05] MEDS: budesonide 0.5mg/2ml UD nebule IH SCH ×2 (12:20→19:53)
--- NOTE | 2023-06-05 17:48 | NUR ---
Student documentation: I have reviewed and agree with all assessment performed and documented by DENNIS STAHL.
--- NOTE | 2023-06-05 18:21 | NUR ---
Problems reprioritized. Patient report given, questions answered & plan of care reviewed with YAMILEX Villareal.
[2023-06-05] MEDS ORDERED: sacubitril/valsartan 49mg-51mg tablet PO SCH (20:00)
[2023-06-05] MEDS: sacubitril/valsartan 24mg-26mg tablet PO SCH (20:09)
[2023-06-05] MEDS: atorvastatin 20mg tablet PO SCH (20:09)
[2023-06-05] MEDS: Terazosin 1mg capsule PO SCH (20:09)
[2023-06-06] VITALS (17 sets, daily range): BP systolic 79–116; BP diastolic 34–54; PULSE 60–101; RESP 16–22; TEMP 96.3–98.2; O2SAT 87–97
[2023-06-06] MEDS: HYDROcodone/acetaminophen 5mg/325mg tablet PO PRN ×4 (01:30→23:41)
[2023-06-06] MEDS: diltiazem 30mg tablet PO SCH ×4 (01:30→20:00)
[2023-06-06] MEDS: acetaminophen 325mg tablet PO SCH ×5 (01:30→20:07)
[2023-06-06] MEDS ORDERED: LORazepam 1 MG tablet PO PRN (02:20)
[2023-06-06] MEDS: ipratropium/albuterol 3ml nebule NEB SCH ×6 (02:50→23:31)
[2023-06-06 06:31] LABS: ALANINE AMINOTRANSFERASE 26 U/L (12-78); ALBUMIN/GLOBULIN RATIO 0.6 (1.1-1.5); ALKALINE PHOSPHATASE 94 IU/L (46-116); ANION GAP 6 (8-16); ASPARTATE AMINO TRANSFERASE 29 U/L (10-37); BILIRUBIN,TOTAL 0.9 MG/DL (0.1-1.0); BLOOD UREA NITROGEN 23 MG/DL (7-18); BUN/CREATININE RATIO 16.3 (10.0-20.0); CALCIUM 8.2 MG/DL (8.5-10.1); CHLORIDE 102 MMOL/L (99-107); CREATININE 1.41 MG/DL (0.60-1.10); GLUCOSE 211 MG/DL (70-104); POTASSIUM 3.9 MMOL/L (3.5-5.1); SODIUM 135 MMOL/L (135-145); TOTAL PROTEIN 5.5 G/DL (6.4-8.2); eCRCL 32 ML/MIN; eGFR 48 ML/MIN
[2023-06-06] MEDS: budesonide 0.5mg/2ml UD nebule IH SCH ×2 (07:59→20:24)
[2023-06-06] MEDS ORDERED: non-formulary drug (Glipizide 1 TAB) PO SCH (08:00)
[2023-06-06] MEDS: apixaban 2.5mg tablet PO SCH ×3 (08:42→20:11)
[2023-06-06] MEDS: sacubitril/valsartan 24mg-26mg tablet PO SCH (08:43)
[2023-06-06] MEDS: furosemide 20MG tablet PO SCH (08:44)
[2023-06-06] MEDS: levoTHYROXINE 75mcg tablet PO SCH (08:44)
[2023-06-06] MEDS: metoprolol succinate 25mg (24-HOUR) SR. Tablet PO SCH (08:44)
[2023-06-06] MEDS: insulin Lispro (HumaLOG) vial - multi-dose SQ SCH (09:13)
[2023-06-06 09:59] LABS: BASOPHILS # (AUTO) 0.1 X10'3 (0-0.2); BASOPHILS % (AUTO) 0.7 % (0-1); EOSINOPHILS # (AUTO) 0.3 X10'3 (0-0.9); EOSINOPHILS % (AUTO) 2.8 % (0-6); HEMATOCRIT 35.3 % (42.0-52.0); HEMOGLOBIN 11.6 g/dl (14.0-17.9); LYMPHOCYTES # (AUTO) 1.1 X10'3 (1.1-4.8); LYMPHOCYTES % (AUTO) 10.9 % (21-51); MEAN CORPUSCULAR HEMOGLOBIN 33.1 PG (27.0-31.0); MEAN CORPUSCULAR HGB CONC 32.7 g/dL (33.0-36.5); MEAN CORPUSCULAR VOLUME 101.2 FL (78-98); MEAN PLATELET VOLUME 9.6 FL (7.4-10.4); MONOCYTES % (AUTO) 10.7 % (2-12); NEUTROPHILS # (AUTO) 7.2 X10'3 (1.8-7.7); NEUTROPHILS % (AUTO) 74.9 % (42-75); PLATELET COUNT 241 X10'3 (140-440); RED BLOOD COUNT 3.49 X10'6 (4.70-6.10); WHITE BLOOD COUNT 9.7 X10'3 (4.5-11.0)
[2023-06-06 10:11] LABS: BLOOD UREA NITROGEN 23 MG/DL (7-18); CHLORIDE 101 MMOL/L (99-107); POTASSIUM 4.1 MMOL/L (3.5-5.1); SODIUM 135 MMOL/L (135-145)
[2023-06-06 10:19] LABS: ALANINE AMINOTRANSFERASE 28 U/L (12-78); ALBUMIN 2.1 G/DL (3.4-5.0); ALBUMIN/GLOBULIN RATIO 0.6 (1.1-1.5); ALKALINE PHOSPHATASE 101 IU/L (46-116); ANION GAP 10 (8-16); ASPARTATE AMINO TRANSFERASE 28 U/L (10-37); BILIRUBIN,TOTAL 0.9 MG/DL (0.1-1.0); BUN/CREATININE RATIO 15.8 (10.0-20.0); CALCIUM 8.4 MG/DL (8.5-10.1); CREATININE 1.46 MG/DL (0.60-1.10); GLUCOSE 227 MG/DL (70-104); TOTAL CARBON DIOXIDE 23.8 MMOL/L (24-32); TOTAL PROTEIN 5.8 G/DL (6.4-8.2); eCRCL 31 ML/MIN; eGFR 46 ML/MIN
[2023-06-06] MEDS ORDERED: levoFLOXACIN 500mg tablet PO SCH (11:00)
[2023-06-06] MEDS ORDERED: lactose-reduced food (Ensure Enlive) - 237ml bottle PO SCH (13:00)
--- NOTE | 2023-06-06 13:11 | NUR ---
Low anali and diabetes consult: Pt DX acute james hematuria-resolved, severe pain from ureteral injury, and altered mental status, irritable and confused possibly secondary to worsening delirium per EMR. Pt presents with an A1c of 7.6% this admit. Due to confusion AOx1 and appropriate A1c given advanced age per ADA guidelines nutrition education is not appropriate nor warranted at this time. Pt presents with a low anali score of 12 per EMR. Per RN physical assessment pt has an abrasion to left knee and reddened to sacrum though not warranting a wound care consult at this time. Pt continues on a carbohydrate/ heart healthy diet with average PO intake of ~21% x 12 meals including 0% for last 5 meals which met ~29% of estimated nutrient needs and ~28% of estimated protein needs. Recommend Ensure Enlive TIDWM to help meet estimated needs; MD notified. No BM yet this admit and not receiving routine bowel care nor available PRN bowel care;discussed with RN. Recommend prunes and prune juice to assist with bowel movement; communicated with dietary. Will continue to monitor closely and make recommendation as appropriate. Recommendations: 1.continue heart healthy consider liberalizing carbohydrate controlled restriction given poor PO intake; continue max assistance with all meals 2.Ensure Enlive TIDWM; pending physician approval in EMR 3.routine bowel care; prunes and prune juice on 06/06 4.actual scaled wt this admit (verbalized wt method not warranted given A0x1); subsequent weekly scaled wts Addendum: 06/06/23 at [address] Amended: Links added.
--- NOTE | 2023-06-06 13:42 | NUR ---
PRESSURE ULCER EDUCATION: DEFINITION: A pressure ulcer is an area of skin that breaks down when you stay in one position too long. The constant pressure against the skin reduces the blood flow to that area and the affected tissue dies. CAUSES: "Being bedridden or in a wheelchair "Fragile skin "Having a chronic condition, such as diabetes or vascular disease "Inability to move certain parts of your body without assistance "Older age "Incontinence of urine or stool SYMPTOMS: "A reddened area that DOES NOT turn white when pressed on - this can be the beginning of a pressure ulcer "A blister, deep sore or a crater - these can be advanced pressure ulcers FIRST AID: "Relieve the pressure on this area "Keep the area clean and dry "Call your primary doctor if you see any of the above symptoms "DO NOT massage the area "DO NOT use a donut shaped or ring shaped pillow- these actually interfere with the blood flow and cause complications PREVENTION: "Check for pressure ulcers everyday "Change position at least every two hours to relieve pressure "Use items that help relieve pressure- pillows, sheepskin, foam padding, and powders. "Keep skin clean and dry "Eat healthy well balanced meals "Exercise daily IF YOU SEE ANY OF THESE SYMPTOMS WHILE IN THE HOSPITAL - TELL YOUR NURSE IMMEDIATELY. IF YOU SEE ANY OF THESE SYMPTOMS WHILE AT HOME OR HAVE ANY QUESTIONS OR CONCERNS ABOUT PRESSURE ULCERS - CALL YOUR PRIMARY DOCTOR IMMEDIATELY. Addendum: 06/06/23 at 1342 by Eliel Padron RN Amended: Links added.
[2023-06-06] MEDS ORDERED: levoFLOXACIN 250mg tablet PO SCH (14:16)
[2023-06-06] MEDS ORDERED: CefTRIAXone 2gm/D5W 50ml BAG 50 ML IV SCH (15:26)
[2023-06-06] MEDS: azithromycin/NS 500mg/250ml 250 ML IV SCH (17:43)
--- NOTE | 2023-06-06 17:46 | NUR ---
Student documentation: I have reviewed and agree with all assessment performed and documented by DENNIS STAHL
--- NOTE | 2023-06-06 18:35 | NUR ---
Problems reprioritized. Patient report given, questions answered & plan of care reviewed with YAMILEX Villareal.
[2023-06-06] MEDS ORDERED: normal saline 500ml IV soln 500 ML IV ONE (19:15)
[2023-06-06] MEDS: sennosides/docusate sodium tablet PO SCH ×2 (20:06→21:00)
[2023-06-06] MEDS: atorvastatin 20mg tablet PO SCH ×2 (20:06→21:00)
[2023-06-06] MEDS: QUEtiapine 25mg tablet PO PRN (20:07)
[2023-06-06] MEDS: Terazosin 1mg capsule PO SCH (20:07)
[2023-06-06] MEDS ORDERED: haloperidol lactate 5mg/ml inj IM ONE (20:50)
[2023-06-06] MEDS: insulin glargine (Lantus) pen - multi-dose SQ SCH (21:00)
--- NOTE | 2023-06-06 23:45 | NUR ---
pt expressing with words and actions that he was in pain was able to break norco 5 in half and administer both with apple sauce along with 1/2 the apple sauce... pt refused in words and actions that he did not want his evening pills, nurse, sitter, and rt, tried to convince to take, we even tried to all convince to take breathing treatment but ended up just doing a "blow by", and as far as meds I ended up waisting as they were all crushed up
[2023-06-07] VITALS (15 sets, daily range): BP systolic 85–138; BP diastolic 44–74; PULSE 90–127; RESP 18–26; TEMP 97–98.1; O2SAT 90–97
[2023-06-07] MEDS: acetaminophen 325mg tablet PO SCH ×4 (01:56→19:26)
[2023-06-07] MEDS: diltiazem 30mg tablet PO SCH ×4 (01:57→19:27)
[2023-06-07] MEDS: ipratropium/albuterol 3ml nebule NEB SCH ×5 (03:00→20:27)
--- NOTE | 2023-06-07 06:42 | NUR ---
Patient in room PCU 3017. I have received report from YAMILEX Villareal and had the opportunity to ask questions and assume patient care.
[2023-06-07] MEDS: budesonide 0.5mg/2ml UD nebule IH SCH (07:15)
[2023-06-07] MEDS ORDERED: NORMAL SALINE IV SCH (08:00)
[2023-06-07] MEDS: metoprolol succinate 25mg (24-HOUR) SR. Tablet PO SCH (08:00)
[2023-06-07] MEDS ORDERED: VANCOMYCIN IV SCH (08:00)
[2023-06-07 08:51] LABS: BASOPHILS # (AUTO) 0.1 X10'3 (0-0.2); BASOPHILS % (AUTO) 0.7 % (0-1); EOSINOPHILS # (AUTO) 0.2 X10'3 (0-0.9); EOSINOPHILS % (AUTO) 1.4 % (0-6); HEMATOCRIT 32.7 % (42.0-52.0); HEMOGLOBIN 10.8 g/dl (14.0-17.9); LYMPHOCYTES # (AUTO) 0.7 X10'3 (1.1-4.8); LYMPHOCYTES % (AUTO) 5.9 % (21-51); MEAN CORPUSCULAR HEMOGLOBIN 33.2 PG (27.0-31.0); MEAN CORPUSCULAR HGB CONC 33.1 g/dL (33.0-36.5); MEAN PLATELET VOLUME 10.1 FL (7.4-10.4); MONOCYTES # (AUTO) 0.9 X10'3 (0-0.9); MONOCYTES % (AUTO) 7.9 % (2-12); NEUTROPHILS # (AUTO) 9.9 X10'3 (1.8-7.7); NEUTROPHILS % (AUTO) 84.1 % (42-75); PLATELET COUNT 253 X10'3 (140-440); RED BLOOD COUNT 3.27 X10'6 (4.70-6.10); RED CELL DISTRIBUTION WIDTH 15.2 % (11.5-14.5); WHITE BLOOD COUNT 11.8 X10'3 (4.5-11.0)
[2023-06-07] MEDS: azithromycin/NS 500mg/250ml 250 ML IV SCH (09:05)
[2023-06-07] MEDS: furosemide 20MG tablet PO SCH (09:06)
[2023-06-07] MEDS: morphine 2 MG/ML inj. syringe IV PRN ×2 (09:06→23:11)
[2023-06-07] MEDS: lisinopril 10 MG tablet PO SCH (09:07)
[2023-06-07] MEDS: levoTHYROXINE 75mcg tablet PO SCH (09:07)
[2023-06-07] MEDS: apixaban 2.5mg tablet PO SCH ×2 (09:07→19:26)
[2023-06-07 09:08] LABS: ALANINE AMINOTRANSFERASE 29 U/L (12-78); ALBUMIN/GLOBULIN RATIO 0.6 (1.1-1.5); ALKALINE PHOSPHATASE 97 IU/L (46-116); ANION GAP 7 (8-16); ASPARTATE AMINO TRANSFERASE 23 U/L (10-37); BILIRUBIN,TOTAL 0.7 MG/DL (0.1-1.0); BLOOD UREA NITROGEN 22 MG/DL (7-18); BUN/CREATININE RATIO 14.6 (10.0-20.0); CHLORIDE 103 MMOL/L (99-107); CREATININE 1.51 MG/DL (0.60-1.10); GLUCOSE 199 MG/DL (70-104); POTASSIUM 4.4 MMOL/L (3.5-5.1); SODIUM 137 MMOL/L (135-145); TOTAL CARBON DIOXIDE 26.7 MMOL/L (24-32); TOTAL PROTEIN 5.4 G/DL (6.4-8.2); eCRCL 30 ML/MIN; eGFR 44 ML/MIN
[2023-06-07] MEDS: insulin Lispro (HumaLOG) vial - multi-dose SQ SCH ×2 (09:38→20:51)
[2023-06-07] MEDS: methylPREDNISolone sod succ 125mg/2ml vial IV SCH ×2 (09:41→20:51)
[2023-06-07] MEDS: vancomycin inj. 750 MG in normal saline 250ml IV soln 250 ML IV SCH (11:12)
[2023-06-07] MEDS: HYDROcodone/acetaminophen 5mg/325mg tablet PO PRN (12:34)
[2023-06-07] MEDS: piperacillin/tazo 3.375gm/50ml 50 ML IV SCH ×3 (15:50→23:04)
--- NOTE | 2023-06-07 16:38 | NUR ---
Student documentation: I have reviewed and agree with all assessment performed and documented by DENNIS STAHL
--- NOTE | 2023-06-07 16:38 | NUR ---
PATIENT HAS BEEN OFF RESTRAINTS SINCE 0800
--- NOTE | 2023-06-07 17:37 | NUR ---
DIAZ CATHETER WAS PULLED AT 1115, NO URINE HAS BEEN PRODUCED AT THIS TIME. BLADDER SCANNED PATIENT FOR 69ML IN BLADDER. BPS TEND TO DROP IN THE MID-MORNING AND AFTERNOON. INFORMED RESIDENT NO NEW ORDERS AT THIS TIME
--- NOTE | 2023-06-07 18:08 | NUR ---
Problems reprioritized. Patient report given, questions answered & plan of care reviewed with YAMILEX Villareal.
[2023-06-07] MEDS: sennosides/docusate sodium tablet PO SCH (19:22)
[2023-06-07] MEDS: atorvastatin 20mg tablet PO SCH (19:28)
[2023-06-07] MEDS: Terazosin 1mg capsule PO SCH (19:33)
[2023-06-07] MEDS: insulin glargine (Lantus) pen - multi-dose SQ SCH (20:54)
[2023-06-07] MEDS ORDERED: furosemide 20 MG/2 ML vial IV ONE (23:55)
[2023-06-08] VITALS (20 sets, daily range): BP systolic 110–135; BP diastolic 54–84; PULSE 65–120; RESP 16–24; TEMP 97.1–98.5; O2SAT 92–99
[2023-06-08 00:05] LABS: ABG BASE EXCESS -1.7 mmol/L (-2.0-2.0); ABG OXYGEN SATURATION 93.6 % (94-97); ABG PCO2 (T) 31.1 mmHg (35.0-48.0); ABG PH (T) 7.459 (7.340-7.440); ABG PO2 (T) 60.2 mmHg (75.0-100.0); ALLEN'S TEST POSITIVE; FCOHb 0.2 % (0.0-3.9); FHHb 6.4 % (0.0-5.0); FLOW 5 L/min; FO2Hb 93.4 % (94-97); MODE NASAL CANNULA; PATIENT TEMPERATURE 35.2; TOTAL HEMOGLOBIN 11.7 G/dl (14.0-17.9)
[2023-06-08] MEDS: ipratropium/albuterol 3ml nebule NEB SCH ×7 (00:09→23:31)
[2023-06-08] MEDS: furosemide 20MG tablet PO SCH ×2 (00:30→10:00)
[2023-06-08] MEDS: acetaminophen 325mg tablet PO SCH ×4 (01:37→21:32)
[2023-06-08] MEDS: morphine 2 MG/ML inj. syringe IV PRN (02:40)
--- NOTE | 2023-06-08 03:39 | NUR ---
Nurse reviewed and agrees with MEENAKSHI Guadarrama's physical assessment.
--- NOTE | 2023-06-08 06:30 | NUR ---
Patient in room PCU 3017. I have received report from Mono ARRIETA and had the opportunity to ask questions and assume patient care.
[2023-06-08] MEDS: budesonide 0.5mg/2ml UD nebule IH SCH (07:24)
[2023-06-08] MEDS: piperacillin/tazo 3.375gm/50ml 50 ML IV SCH ×2 (08:00→18:06)
[2023-06-08] MEDS: vancomycin inj. 750 MG in normal saline 250ml IV soln 250 ML IV SCH (08:24)
[2023-06-08] MEDS: methylPREDNISolone sod succ/PF 40mg inj. IV SCH ×2 (08:24→20:14)
[2023-06-08] MEDS: azithromycin/NS 500mg/250ml 250 ML IV SCH (08:24)
[2023-06-08] MEDS: apixaban 2.5mg tablet PO SCH ×2 (10:00→21:33)
[2023-06-08] MEDS: carVEDilol 3.125mg tablet PO SCH ×2 (10:00→21:33)
[2023-06-08] MEDS: levoTHYROXINE 75mcg tablet PO SCH (10:00)
[2023-06-08] MEDS: lisinopril 10 MG tablet PO SCH (10:01)
[2023-06-08 11:03] LABS: BASOPHILS % (AUTO) 0 % (0-1); EOSINOPHILS % (AUTO) 0 % (0-6); HEMATOCRIT 31.8 % (42.0-52.0); HEMOGLOBIN 10.3 g/dl (14.0-17.9); LYMPHOCYTES # (AUTO) 0.3 X10'3 (1.1-4.8); LYMPHOCYTES % (AUTO) 1.9 % (21-51); MEAN CORPUSCULAR HEMOGLOBIN 32.7 PG (27.0-31.0); MEAN CORPUSCULAR HGB CONC 32.4 g/dL (33.0-36.5); MEAN CORPUSCULAR VOLUME 100.8 FL (78-98); MEAN PLATELET VOLUME 9.7 FL (7.4-10.4); MONOCYTES # (AUTO) 0.5 X10'3 (0-0.9); MONOCYTES % (AUTO) 3.3 % (2-12); NEUTROPHILS # (AUTO) 15.9 X10'3 (1.8-7.7); NEUTROPHILS % (AUTO) 94.8 % (42-75); PLATELET COUNT 262 X10'3 (140-440); RED BLOOD COUNT 3.15 X10'6 (4.70-6.10); RED CELL DISTRIBUTION WIDTH 14.9 % (11.5-14.5); WHITE BLOOD COUNT 16.8 X10'3 (4.5-11.0)
[2023-06-08] MEDS ORDERED: normal saline 1000ml 1,000 ML IV SCH (11:10)
[2023-06-08] MEDS ORDERED: LORazepam 2 mg/ml vial IV ONE (11:45)
[2023-06-08 11:47] LABS: ALANINE AMINOTRANSFERASE 23 U/L (12-78); ALBUMIN 2.1 G/DL (3.4-5.0); ALBUMIN/GLOBULIN RATIO 0.6 (1.1-1.5); ALKALINE PHOSPHATASE 102 IU/L (46-116); ANION GAP 15 (8-16); ASPARTATE AMINO TRANSFERASE 33 U/L (10-37); BILIRUBIN,TOTAL 0.7 MG/DL (0.1-1.0); BLOOD UREA NITROGEN 33 MG/DL (7-18); BUN/CREATININE RATIO 19.4 (10.0-20.0); CALCIUM 8.2 MG/DL (8.5-10.1); CHLORIDE 103 MMOL/L (99-107); GLUCOSE 228 MG/DL (70-104); POTASSIUM 4.1 MMOL/L (3.5-5.1); SODIUM 139 MMOL/L (135-145); TOTAL CARBON DIOXIDE 21.3 MMOL/L (24-32); TOTAL PROTEIN 5.5 G/DL (6.4-8.2); eCRCL 27 ML/MIN; eGFR 38 ML/MIN
[2023-06-08] MEDS: insulin Lispro (HumaLOG) vial - multi-dose SQ SCH (14:56)
--- NOTE | 2023-06-08 16:06 | NUR ---
Spoke with Dr Ordonez about patient not voiding and new chest tube placement. gave orders to place a sitter in room and not to straight cath patient until bladder has over 600 mL in it.
[2023-06-08 16:51] LABS: GLUCOSE,BODY FLUID 239 MG/DL; LDH,BODY FLUID 85 U/L
[2023-06-08 17:08] LABS: TOTAL PROTEIN,BODY FLUID < 2.0 G/DL
[2023-06-08 17:15] LABS: BFAPPEAR CLOUDY; BFCOLOR AMBER; BFSOURCE PLEURAL FLD; BFVOLUME 57 ML
[2023-06-08 17:16] LABS: BF RBC COUNT 7800 /CU MM; BF WBC COUNT 325 /CU MM (0-1000); LYMPHOCYTES,BODY FLUID 58 %; MONOCYTES,BODY FLUID 41 %; NEUTROPHILS,BODY FLUID 1 %
--- NOTE | 2023-06-08 18:35 | NUR ---
Problems reprioritized. Patient report given, questions answered & plan of care reviewed with Kayode ARRIETA.
[2023-06-08] MEDS: atorvastatin 20mg tablet PO SCH (21:31)
[2023-06-08] MEDS: sennosides/docusate sodium tablet PO SCH (21:32)
[2023-06-08] MEDS: Terazosin 1mg capsule PO SCH (21:32)
[2023-06-08] MEDS: QUEtiapine 25mg tablet PO PRN (21:48)
[2023-06-08] MEDS: HYDROcodone/acetaminophen 5mg/325mg tablet PO PRN (22:51)
--- NOTE | 2023-06-08 23:01 | NUR ---
paged PAGER ID: [phone] MESSAGE: Hi Dr. Mayer, I'm paging about Temo Boone in room 3017B, Pt is being very aggressive and trying to bite and scratch our aids. I was wondering if we could have an order for restraints? Thank you.
[2023-06-08] MEDS: insulin glargine (Lantus) pen - multi-dose SQ SCH (23:40)
--- NOTE | 2023-06-08 23:45 | NUR ---
Page Sent promotional table spacer PAGER ID: [phone] MESSAGE: Pt in room 2017B lungs are sounding wet . Can we stop IV fluids? maybe get a Dose of Lasix? thank you.
[2023-06-08] MEDS ORDERED: furosemide 20 MG/2 ML vial IV ONE ×2 (23:50)
[2023-06-09] VITALS (20 sets, daily range): BP systolic 88–117; BP diastolic 46–71; PULSE 81–134; RESP 14–22; TEMP 97.2–97.9; O2SAT 92–98
[2023-06-09] MEDS: piperacillin/tazo 3.375gm/50ml 50 ML IV SCH ×3 (00:06→16:56)
[2023-06-09] MEDS: acetaminophen 325mg tablet PO SCH ×4 (02:00→20:33)
[2023-06-09] MEDS: ipratropium/albuterol 3ml nebule NEB SCH ×6 (03:04→23:21)
--- NOTE | 2023-06-09 05:11 | NUR ---
CRANE OPERATOR documentation: I have reviewed and agree with all interventions, assessments performed and documented by GHULAM ARRIETA.
[2023-06-09] MEDS: levoTHYROXINE 75mcg tablet PO SCH (07:00)
[2023-06-09] MEDS: apixaban 2.5mg tablet PO SCH ×2 (08:00→20:32)
[2023-06-09] MEDS: furosemide 20MG tablet PO SCH (08:00)
[2023-06-09] MEDS: carVEDilol 3.125mg tablet PO SCH ×2 (08:00→20:33)
[2023-06-09] MEDS: lisinopril 10 MG tablet PO SCH (08:00)
[2023-06-09] MEDS: budesonide 0.5mg/2ml UD nebule IH SCH (08:14)
[2023-06-09 09:26] LABS: BASOPHILS % (AUTO) 0 % (0-1); EOSINOPHILS % (AUTO) 0 % (0-6); HEMATOCRIT 32.6 % (42.0-52.0); HEMOGLOBIN 10.7 g/dl (14.0-17.9); LYMPHOCYTES # (AUTO) 0.5 X10'3 (1.1-4.8); LYMPHOCYTES % (AUTO) 2.9 % (21-51); MEAN CORPUSCULAR HEMOGLOBIN 32.9 PG (27.0-31.0); MEAN CORPUSCULAR HGB CONC 32.8 g/dL (33.0-36.5); MEAN CORPUSCULAR VOLUME 100.3 FL (78-98); MEAN PLATELET VOLUME 9.9 FL (7.4-10.4); MONOCYTES # (AUTO) 0.7 X10'3 (0-0.9); MONOCYTES % (AUTO) 3.9 % (2-12); NEUTROPHILS # (AUTO) 17.2 X10'3 (1.8-7.7); NEUTROPHILS % (AUTO) 93.2 % (42-75); PLATELET COUNT 252 X10'3 (140-440); RED BLOOD COUNT 3.25 X10'6 (4.70-6.10); RED CELL DISTRIBUTION WIDTH 14.7 % (11.5-14.5); WHITE BLOOD COUNT 18.4 X10'3 (4.5-11.0)
[2023-06-09 10:20] LABS: ALANINE AMINOTRANSFERASE 30 U/L (12-78); ALBUMIN/GLOBULIN RATIO 0.6 (1.1-1.5); ALKALINE PHOSPHATASE 99 IU/L (46-116); ANION GAP 11 (8-16); ASPARTATE AMINO TRANSFERASE 46 U/L (10-37); BILIRUBIN,TOTAL 0.7 MG/DL (0.1-1.0); BLOOD UREA NITROGEN 43 MG/DL (7-18); BUN/CREATININE RATIO 23.2 (10.0-20.0); CALCIUM 8.3 MG/DL (8.5-10.1); CHLORIDE 106 MMOL/L (99-107); CREATININE 1.85 MG/DL (0.60-1.10); GLUCOSE 52 MG/DL (70-104); LACTATE DEHYDROGENASE 311 U/L (85-227); POTASSIUM 4.1 MMOL/L (3.5-5.1); SODIUM 141 MMOL/L (135-145); TOTAL CARBON DIOXIDE 24.3 MMOL/L (24-32); TOTAL PROTEIN 5.3 G/DL (6.4-8.2); eCRCL 24 ML/MIN; eGFR 35 ML/MIN
[2023-06-09] MEDS: methylPREDNISolone sod succ/PF 40mg inj. IV SCH ×2 (10:45→20:42)
[2023-06-09] MEDS: vancomycin inj. 750 MG in normal saline 250ml IV soln 250 ML IV SCH (10:45)
[2023-06-09] MEDS: haloperidol lactate 5mg/ml inj IM PRN (11:26)
--- NOTE | 2023-06-09 12:09 | NUR ---
ATTEMPTS TO STRAIGHT CATH PATIENT UNSUCCESSFUL, EVEN WITH A COUDE 14FR. DR WHITTINGTON IN NURSING STATION AND MADE HIM AWARE. PT WAS BLADDER SCANNED AND HAS MORE THAN 600 ML IN HIS BLADDER. ATTEMPTS X2. ALSO RESTARTED TELE ORDER PATIENT IS ON HALDOL, PATIENT IS CURRENTLY SHOWING AFIB RVR IN THE 140S - MADE DR WHITTINGTON AWARE. ORDERS FOR CARDIZEM ARE BEING PLACED. WAS AT BEDSIDE BUT JUST LEFT AND SITTER HAS BEEN PLACED BACK IN ROOM FOR PATIENT SAFTEY PATIENT IS PULLING, PINCHING AND HURTING SELF AND OTHERS - PT APPEARS DELIRIOUS AND IS NOT ANSWERING ANY ORIENTATION QESTIONS APPROPRIATELY AT THIS TIME. - WILL CONTINUE TO CLOSELY MONITOR
[2023-06-09] MEDS ORDERED: diltiazem 5mg/ml 5ml inj. IV ONE (12:10)
[2023-06-09] MEDS: lactose-reduced food (Ensure Enlive) - 237ml bottle PO SCH ×2 (13:00→17:58)
--- NOTE | 2023-06-09 14:34 | NUR ---
PAGER ID: [phone] MESSAGE: ROOM 17B MR RASHID RECEIVED A CATHETER FROM DR SEGOVIA - DIFFICULT APPROACH PER - HE USED CYSTOSCOPE - NEED A RESTRAINT ORDER FOR MITTENS PLEASE - LUCA PLACED 30CC INSTEAD OF 10CC IN CATHETER BALLOON - NELLY [phone]
--- NOTE | 2023-06-09 15:57 | NUR ---
F/u 06/09: Pt continues on a heart healthy /carbohydrate controlled diet continues with very poor appetite with average PO intake of ~8% x 9 meals including mostly 0-12.5% continues to not meet estimated needs. Pt with in adequate nutrition for 8 days per EMR; notified. Still pending ONS physician approval in EMR however ONS recommendations were placed under no longer attending physical thus updated Ensure Enlive TIDWM ONS recommendations in EMR. Pt may benefit from nutrition support given prolonged inadequate nutrition and if within POC though noted pt continues with worsening delirium every day and has sitter at bedside due to pulling pinching and hurting self and others. No BM still per EMR , now 8 days though receiving routine senna bowel care per EMR. Per verbal discussion with RN pt had about 1L urine retention. RN agreeable to a feeder for all meals at bedside for encourage PO intake. Additionally discussed absence of bowel movement this admit. Will continue to monitor. Recommendations: 1.continue heart healthy consider liberalizing carbohydrate controlled restriction given poor PO intake; continue max assistance with all meals 2.Ensure Enlive TIDWM; pending physician approval in EMR 3.routine bowel care; prunes and prune juice on 06/06 and 06/09 4.actual scaled wt this admit (verbalized wt method not warranted given A0x1); subsequent weekly scaled wts Addendum: 06/09/23 at [address] Amended: Links added. Addendum: 06/09/23 at [address] F/u 06/09: Pt continues on a heart healthy /carbohydrate controlled diet continues with very poor appetite with average PO intake of ~8% x 9 meals including mostly 0-12.5% continues to not meet estimated needs. Pt with in adequate nutrition for 8 days per EMR. Still pending ONS physician approval in EMR however ONS recommendations were placed under no longer attending physical thus updated Ensure Enlive TIDWM ONS recommendations in EMR. Pt may benefit from nutrition support given prolonged inadequate nutrition and if within POC though noted pt continues with worsening delirium every day and has sitter at bedside due to pulling pinching and hurting self and others. No BM still per EMR , now 8 days though receiving routine senna bowel care per EMR. Per verbal discussion with RN pt had about 1L urine retention. RN agreeable to a feeder for all meals at bedside for encourage PO intake. Additionally discussed absence of bowel movement this admit. Will continue to monitor. Recommendations: 1.continue heart healthy consider liberalizing carbohydrate controlled restriction given poor PO intake; continue max assistance with all meals 2.Ensure Enlive TIDWM; pending physician approval in EMR 3.routine bowel care; prunes and prune juice on 06/06 and 06/09 4.actual scaled wt this admit (verbalized wt method not warranted given A0x1); subsequent weekly scaled wts
--- NOTE | 2023-06-09 16:46 | NUR ---
PAGER ID: [phone] MESSAGE: HI :) DILTIAZEM IVP WORKED FOR A BIT BUT NOW 17B MR RASHID' HR IS BACK UP IN THE 130"S :( PLEASE ADVISE BP IS 105/70 - NELLY [id number]
--- NOTE | 2023-06-09 17:13 | NUR ---
ORDERS RECEIVED FOR DILTIAZEM 30MG PO Q6H FOR AFIB RVR ALONG WITH ADMINISTERING HIS DAILY COREG
[2023-06-09] MEDS: HYDROcodone/acetaminophen 5mg/325mg tablet PO PRN (17:15)
[2023-06-09] MEDS: diltiazem 30mg tablet PO SCH ×2 (17:15→20:33)
[2023-06-09] MEDS: metoprolol succinate 25mg (24-HOUR) SR. Tablet PO SCH (17:57)
[2023-06-09] MEDS: Terazosin 1mg capsule PO SCH (20:31)
[2023-06-09] MEDS: sennosides/docusate sodium tablet PO SCH (20:31)
[2023-06-09] MEDS: atorvastatin 20mg tablet PO SCH (20:32)
[2023-06-09] MEDS: insulin glargine (Lantus) pen - multi-dose SQ SCH (21:00)
[2023-06-10] VITALS (13 sets, daily range): BP systolic 106–117; BP diastolic 62–67; PULSE 72–108; RESP 14–22; TEMP 97.2–97.7; O2SAT 92–96
[2023-06-10] MEDS: piperacillin/tazo 3.375gm/50ml 50 ML IV SCH ×4 (00:15→23:53)
[2023-06-10] MEDS: acetaminophen 325mg tablet PO SCH ×2 (01:41→10:10)
[2023-06-10] MEDS: diltiazem 30mg tablet PO SCH ×4 (01:41→20:49)
[2023-06-10] MEDS: ipratropium/albuterol 3ml nebule NEB SCH ×6 (03:00→23:31)
[2023-06-10] MEDS: levoTHYROXINE 75mcg tablet PO SCH (07:00)
[2023-06-10] MEDS ORDERED: VANCOMYCIN LEVEL IV ONE (07:30)
[2023-06-10] MEDS: lactose-reduced food (Ensure Enlive) - 237ml bottle PO SCH ×3 (08:00→18:00)
[2023-06-10] MEDS: budesonide 0.5mg/2ml UD nebule IH SCH ×2 (08:17→19:47)
[2023-06-10 08:49] LABS: BASOPHILS % (AUTO) 0.1 % (0-1); EOSINOPHILS % (AUTO) 0 % (0-6); HEMATOCRIT 32.4 % (42.0-52.0); HEMOGLOBIN 10.4 g/dl (14.0-17.9); LYMPHOCYTES # (AUTO) 0.4 X10'3 (1.1-4.8); LYMPHOCYTES % (AUTO) 2.3 % (21-51); MEAN CORPUSCULAR HEMOGLOBIN 32.3 PG (27.0-31.0); MEAN CORPUSCULAR HGB CONC 32.1 g/dL (33.0-36.5); MEAN CORPUSCULAR VOLUME 100.6 FL (78-98); MEAN PLATELET VOLUME 9.9 FL (7.4-10.4); MONOCYTES # (AUTO) 0.5 X10'3 (0-0.9); MONOCYTES % (AUTO) 2.9 % (2-12); NEUTROPHILS # (AUTO) 16.3 X10'3 (1.8-7.7); NEUTROPHILS % (AUTO) 94.7 % (42-75); PLATELET COUNT 223 X10'3 (140-440); RED BLOOD COUNT 3.22 X10'6 (4.70-6.10); RED CELL DISTRIBUTION WIDTH 15.1 % (11.5-14.5); WHITE BLOOD COUNT 17.2 X10'3 (4.5-11.0)
[2023-06-10 09:01] LABS: ALANINE AMINOTRANSFERASE 30 U/L (12-78); ALBUMIN 1.8 G/DL (3.4-5.0); ALBUMIN/GLOBULIN RATIO 0.6 (1.1-1.5); ALKALINE PHOSPHATASE 94 IU/L (46-116); ANION GAP 14 (8-16); ASPARTATE AMINO TRANSFERASE 46 U/L (10-37); BILIRUBIN,TOTAL 0.8 MG/DL (0.1-1.0); BLOOD UREA NITROGEN 48 MG/DL (7-18); BUN/CREATININE RATIO 24.6 (10.0-20.0); CHLORIDE 107 MMOL/L (99-107); CREATININE 1.95 MG/DL (0.60-1.10); GLUCOSE 181 MG/DL (70-104); POTASSIUM 4.1 MMOL/L (3.5-5.1); SODIUM 142 MMOL/L (135-145); TOTAL CARBON DIOXIDE 20.6 MMOL/L (24-32); TOTAL PROTEIN 4.9 G/DL (6.4-8.2); eCRCL 23 ML/MIN; eGFR 33 ML/MIN
[2023-06-10 09:10] LABS: PRO BRAIN NATRIURETIC PEPTIDE 10429 PG/ML (0-450)
[2023-06-10] MEDS: vancomycin inj. 750 MG in normal saline 250ml IV soln 250 ML IV SCH (09:48)
[2023-06-10] MEDS: apixaban 2.5mg tablet PO SCH ×2 (09:49→20:48)
[2023-06-10] MEDS: carVEDilol 3.125mg tablet PO SCH ×2 (09:49→20:49)
[2023-06-10] MEDS: methylPREDNISolone sod succ/PF 40mg inj. IV SCH ×3 (10:02→20:50)
[2023-06-10] MEDS: furosemide 20MG tablet PO SCH (10:08)
[2023-06-10] MEDS: morphine 2 MG/ML inj. syringe IV PRN (11:14)
--- NOTE | 2023-06-10 11:14 | NUR ---
PT WITH SUDDEN DISTRESS THIS AM - CHEST TUBE WAS JUST PULLED BY IR - NOTIFIED MD - RECEIVED ORDER FOR CXRAY S/P CHEST TUBE REMOVAL - MORPHINE GIVEN FOR SEVERE PAIN AND DISTRESS - WILL CONTINUE TO CLOSELY MONITOR
--- NOTE | 2023-06-10 13:00 | NUR ---
1100 svn triaged. Therapist not available
[2023-06-10] MEDS: sacubitril/valsartan 24mg-26mg tablet PO SCH ×2 (13:15→20:48)
[2023-06-10] MEDS ORDERED: dextrose 5%-normal saline 1,000 ML IV SCH (13:20)
[2023-06-10] MEDS ORDERED: acetaminophen 325mg tablet PO PRN (15:25)
[2023-06-10] MEDS: folic acid/vitamin B complex w/vitamin C 0.8mg tablet PO SCH (16:11)
[2023-06-10] MEDS: HYDROcodone/acetaminophen 5mg/325mg tablet PO PRN (16:11)
[2023-06-10] MEDS: guaiFENesin ER 600mg tablet PO SCH ×2 (16:11→20:49)
[2023-06-10] MEDS: metoprolol succinate 25mg (24-HOUR) SR. Tablet PO SCH (16:12)
[2023-06-10] MEDS: polyethylene glycol 3350 17gm powd pack PO SCH ×2 (16:31→20:48)
--- NOTE | 2023-06-10 17:19 | NUR ---
END OF SHIFT NOTE PT HAD A GREAT DAY. KANDI KOVACS'Zena AND PATIENT IS BEHAVING APPROPRIATELY. CONTINUES TO REQUIRE MITTENS (RESTRAINT) FOR PICKING/PULLING LINES. URINE CHANGED FROM YELLOW TO JULIAN TODAY. MD AND RESIDENT FOLLOWING PATIENT IS AWARE AND VERBAL RECEIVED TO CONTINUE TO MONITOR. PT EATING AND DRINKING WITH NO ISSUES. HE DOES CHEW HIS MEDICATIONS WHICH IS AN ADVANCED SIGN OF DEMENTIA. PT IS INTERACTING WITH PEOPLE AND STATES TOOTS IS BACK TO HIS OLE SELF. Addendum: 06/10/23 at 1727 by Vidya Gilmore RN CHEST TUBE WAS REMOVED TODAY, PT WITH INCREASED RESTLESSNESS SO A POST CHEST TUBE REMOVAL XRAY ORDERED WHICH WAS NEGATIVE. CUMULATIVE TOTAL ON CHEST TUBE WAS APPROX 3000ML PT HAS BEEN WEANED DOWN TO 2L VIA NC AND SATTING >94%
[2023-06-10] MEDS: normal saline 1000ml 1,000 ML IV SCH (18:40)
[2023-06-10] MEDS: sennosides/docusate sodium tablet PO SCH (20:48)
[2023-06-10] MEDS: Terazosin 1mg capsule PO SCH (20:48)
[2023-06-10] MEDS: docusate sod 100mg capsule PO SCH (20:49)
[2023-06-10] MEDS: atorvastatin 20mg tablet PO SCH (20:49)
[2023-06-10] MEDS: furosemide 20 MG/2 ML vial IV SCH (20:53)
[2023-06-10] MEDS: insulin glargine (Lantus) pen - multi-dose SQ SCH (21:00)
[2023-06-10] MEDS: insulin Lispro (HumaLOG) vial - multi-dose SQ SCH (22:51)
[2023-06-11] VITALS (11 sets, daily range): BP systolic 78–118; BP diastolic 51–69; PULSE 67–109; RESP 14–24; TEMP 97.3–97.7; O2SAT 91–98
[2023-06-11] MEDS: diltiazem 30mg tablet PO SCH ×4 (02:00→22:46)
[2023-06-11] MEDS: ipratropium/albuterol 3ml nebule NEB SCH ×2 (03:49→07:58)
[2023-06-11] MEDS: levoTHYROXINE 75mcg tablet PO SCH (07:00)
[2023-06-11] MEDS: furosemide 20 MG/2 ML vial IV SCH ×2 (08:00→19:47)
[2023-06-11] MEDS: metoprolol succinate 25mg (24-HOUR) SR. Tablet PO SCH (08:00)
[2023-06-11] MEDS: lactose-reduced food (Ensure Enlive) - 237ml bottle PO SCH ×3 (08:00→18:00)
[2023-06-11 08:02] LABS: BASOPHILS % (AUTO) 0 % (0-1); EOSINOPHILS % (AUTO) 0 % (0-6); HEMATOCRIT 30.2 % (42.0-52.0); LYMPHOCYTES # (AUTO) 0.4 X10'3 (1.1-4.8); LYMPHOCYTES % (AUTO) 2.6 % (21-51); MEAN CORPUSCULAR VOLUME 99.9 FL (78-98); MONOCYTES # (AUTO) 0.5 X10'3 (0-0.9); MONOCYTES % (AUTO) 3.4 % (2-12); NEUTROPHILS # (AUTO) 14.3 X10'3 (1.8-7.7); PLATELET COUNT 206 X10'3 (140-440); RED BLOOD COUNT 3.02 X10'6 (4.70-6.10); RED CELL DISTRIBUTION WIDTH 14.7 % (11.5-14.5); WHITE BLOOD COUNT 15.2 X10'3 (4.5-11.0)
[2023-06-11 08:14] LABS: ALANINE AMINOTRANSFERASE 30 U/L (12-78); ALBUMIN 1.7 G/DL (3.4-5.0); ALBUMIN/GLOBULIN RATIO 0.6 (1.1-1.5); ALKALINE PHOSPHATASE 86 IU/L (46-116); ANION GAP 11 (8-16); ASPARTATE AMINO TRANSFERASE 28 U/L (10-37); BILIRUBIN,TOTAL 0.8 MG/DL (0.1-1.0); BLOOD UREA NITROGEN 56 MG/DL (7-18); BUN/CREATININE RATIO 26.9 (10.0-20.0); CALCIUM 7.6 MG/DL (8.5-10.1); CHLORIDE 105 MMOL/L (99-107); CREATININE 2.08 MG/DL (0.60-1.10); GLUCOSE 275 MG/DL (70-104); POTASSIUM 3.6 MMOL/L (3.5-5.1); SODIUM 139 MMOL/L (135-145); TOTAL CARBON DIOXIDE 23.2 MMOL/L (24-32); TOTAL PROTEIN 4.5 G/DL (6.4-8.2); eCRCL 22 ML/MIN; eGFR 31 ML/MIN
[2023-06-11] MEDS: methylPREDNISolone sod succ/PF 40mg inj. IV SCH ×2 (08:28→19:52)
[2023-06-11] MEDS: folic acid/vitamin B complex w/vitamin C 0.8mg tablet PO SCH (08:30)
[2023-06-11] MEDS: guaiFENesin ER 600mg tablet PO SCH ×2 (08:31→19:57)
[2023-06-11] MEDS: docusate sod 100mg capsule PO SCH ×2 (08:31→19:56)
[2023-06-11] MEDS: apixaban 2.5mg tablet PO SCH ×2 (08:31→19:56)
[2023-06-11] MEDS: carVEDilol 3.125mg tablet PO SCH ×2 (08:31→20:08)
[2023-06-11] MEDS: piperacillin/tazo 3.375gm/50ml 50 ML IV SCH ×2 (08:32→15:38)
[2023-06-11] MEDS: sacubitril/valsartan 24mg-26mg tablet PO SCH ×2 (08:32→22:47)
[2023-06-11] MEDS ORDERED: ipratropium/albuterol 3ml nebule NEB PRN (11:00)
[2023-06-11] MEDS: normal saline 1000ml 1,000 ML IV SCH (14:40)
[2023-06-11] MEDS: HYDROcodone/acetaminophen 5mg/325mg tablet PO PRN (15:20)
--- NOTE | 2023-06-11 18:30 | NUR ---
Patient in room PCU 3017. I have received report from Iris KAMINSKI and had the opportunity to ask questions and assume patient care.
[2023-06-11] MEDS: insulin Lispro (HumaLOG) vial - multi-dose SQ SCH ×2 (19:40→22:41)
[2023-06-11] MEDS: insulin glargine (Lantus) pen - multi-dose SQ SCH (22:43)
[2023-06-11] MEDS: polyethylene glycol 3350 17gm powd pack PO SCH (22:46)
[2023-06-11] MEDS: Terazosin 1mg capsule PO SCH (22:46)
[2023-06-11] MEDS: sennosides/docusate sodium tablet PO SCH (22:46)
[2023-06-11] MEDS: atorvastatin 20mg tablet PO SCH (22:46)
[2023-06-12] VITALS (8 sets, daily range): BP systolic 108–126; BP diastolic 57–77; PULSE 63–92; RESP 16–20; TEMP 97.2–98.4; O2SAT 90–97
[2023-06-12] MEDS: piperacillin/tazo 3.375gm/50ml 50 ML IV SCH ×3 (00:22→16:13)
[2023-06-12] MEDS: diltiazem 30mg tablet PO SCH ×4 (02:30→20:34)
--- NOTE | 2023-06-12 06:28 | NUR ---
Patient in room PCU 3017. I have received report from Monserrat KAMINSKI and had the opportunity to ask questions and assume patient care.
--- NOTE | 2023-06-12 06:30 | NUR ---
Problems reprioritized. Patient report given, questions answered & plan of care reviewed with Alyssa KAMINSKI.
[2023-06-12 06:40] LABS: BASOPHILS % (AUTO) 0 % (0-1); EOSINOPHILS % (AUTO) 0 % (0-6); HEMATOCRIT 32.2 % (42.0-52.0); HEMOGLOBIN 10.5 g/dl (14.0-17.9); LYMPHOCYTES # (AUTO) 0.4 X10'3 (1.1-4.8); LYMPHOCYTES % (AUTO) 3.7 % (21-51); MEAN CORPUSCULAR HEMOGLOBIN 32.4 PG (27.0-31.0); MEAN CORPUSCULAR HGB CONC 32.6 g/dL (33.0-36.5); MEAN CORPUSCULAR VOLUME 99.2 FL (78-98); MEAN PLATELET VOLUME 9.6 FL (7.4-10.4); MONOCYTES # (AUTO) 0.4 X10'3 (0-0.9); MONOCYTES % (AUTO) 3.4 % (2-12); NEUTROPHILS # (AUTO) 11.1 X10'3 (1.8-7.7); NEUTROPHILS % (AUTO) 92.9 % (42-75); PLATELET COUNT 204 X10'3 (140-440); RED BLOOD COUNT 3.25 X10'6 (4.70-6.10); RED CELL DISTRIBUTION WIDTH 14.6 % (11.5-14.5)
[2023-06-12 06:57] LABS: ALANINE AMINOTRANSFERASE 34 U/L (12-78); ALBUMIN 1.6 G/DL (3.4-5.0); ALBUMIN/GLOBULIN RATIO 0.5 (1.1-1.5); ALKALINE PHOSPHATASE 88 IU/L (46-116); ANION GAP 10 (8-16); ASPARTATE AMINO TRANSFERASE 22 U/L (10-37); BILIRUBIN,TOTAL 0.7 MG/DL (0.1-1.0); BLOOD UREA NITROGEN 59 MG/DL (7-18); BUN/CREATININE RATIO 29.8 (10.0-20.0); CALCIUM 7.8 MG/DL (8.5-10.1); CHLORIDE 105 MMOL/L (99-107); CREATININE 1.98 MG/DL (0.60-1.10); GLUCOSE 292 MG/DL (70-104); POTASSIUM 3.3 MMOL/L (3.5-5.1); SODIUM 141 MMOL/L (135-145); TOTAL CARBON DIOXIDE 26.5 MMOL/L (24-32); TOTAL PROTEIN 4.6 G/DL (6.4-8.2); eCRCL 23 ML/MIN; eGFR 32 ML/MIN
[2023-06-12] MEDS: budesonide 0.5mg/2ml UD nebule IH SCH (08:00)
[2023-06-12] MEDS: lactose-reduced food (Ensure Enlive) - 237ml bottle PO SCH ×3 (08:00→18:00)
[2023-06-12] MEDS: furosemide 20 MG/2 ML vial IV SCH ×2 (08:00→20:43)
[2023-06-12] MEDS: carVEDilol 3.125mg tablet PO SCH ×2 (09:09→20:34)
[2023-06-12] MEDS: apixaban 2.5mg tablet PO SCH ×2 (09:09→20:36)
[2023-06-12] MEDS: folic acid/vitamin B complex w/vitamin C 0.8mg tablet PO SCH (09:09)
[2023-06-12] MEDS: methylPREDNISolone sod succ/PF 40mg inj. IV SCH ×2 (09:09→20:40)
[2023-06-12] MEDS: sacubitril/valsartan 24mg-26mg tablet PO SCH ×2 (09:09→20:37)
[2023-06-12] MEDS: guaiFENesin ER 600mg tablet PO SCH ×2 (09:10→20:39)
[2023-06-12] MEDS: docusate sod 100mg capsule PO SCH ×2 (09:10→20:34)
[2023-06-12] MEDS: metoprolol succinate 25mg (24-HOUR) SR. Tablet PO SCH (09:10)
[2023-06-12] MEDS: levoTHYROXINE 75mcg tablet PO SCH (09:11)
[2023-06-12] MEDS: normal saline 1000ml 1,000 ML IV SCH (10:40)
--- NOTE | 2023-06-12 13:19 | NUR ---
F/u 06/12: Per EMR pt's acute metabolic encephalopathy has significantly improved and chest tube removed on 06/10. Pt continues on a heart healthy carbohydrate controlled diet with intake improvement of ~33% x 5 meals this follow up and with total ice cream freezer assistant. Pt also receiving Ensure Enlive TIDWM starting on 06/09 with average ONS intake of 40% x 5 ONS. PO intake and ONS combined met ~69% of estimated kcal needs and ~74% of estimated protein needs. Still no BM yet this admit though continues receiving routine colace and senna; discussed with RN. RN to discuss additional PRN bowel care with MD. Will continue to monitor. Recommendations: 1.continue heart healthy consider liberalizing carbohydrate controlled restriction given poor PO intake; continue max assistance with all meals 2.Ensure Enlive TIDWM 3.routine bowel care; prunes and prune juice on 06/06 and 06/09 4.actual scaled wt this admit (verbalized wt method not warranted given A0x1); subsequent weekly scaled wts Addendum: 06/12/23 at [address] Amended: Links added.
[2023-06-12] MEDS: HYDROcodone/acetaminophen 5mg/325mg tablet PO PRN (13:44)
[2023-06-12] MEDS: insulin Lispro (HumaLOG) vial - multi-dose SQ SCH ×2 (13:55→19:25)
[2023-06-12] MEDS ORDERED: bisacodyl 10mg suppository rectal RC PRN (15:05)
[2023-06-12] MEDS ORDERED: aluminum hydroxide 1,920MG/30ml UD cup PO PRN (17:25)
--- NOTE | 2023-06-12 18:45 | NUR ---
Patient in room PCU 3017. I have received report from Alyssa KAMINSKI and had the opportunity to ask questions and assume patient care.
[2023-06-12] MEDS: haloperidol lactate 5mg/ml inj IM PRN (19:33)
[2023-06-12] MEDS: atorvastatin 20mg tablet PO SCH (20:36)
[2023-06-12] MEDS: polyethylene glycol 3350 17gm powd pack PO SCH (20:38)
[2023-06-12] MEDS: Terazosin 1mg capsule PO SCH (20:38)
[2023-06-12] MEDS: sennosides/docusate sodium tablet PO SCH (20:39)
[2023-06-12] MEDS: insulin glargine (Lantus) pen - multi-dose SQ SCH (23:05)
[2023-06-13] MEDS: piperacillin/tazo 3.375gm/50ml 50 ML IV SCH ×2 (00:23→09:07)
[2023-06-13] MEDS: diltiazem 30mg tablet PO SCH ×3 (01:59→15:01)
[2023-06-13 02:00] VITALS: BP 115/50; PULSE 66; RESP 18; TEMP 98.4; O2SAT 94
[2023-06-13] MEDS: HYDROcodone/acetaminophen 5mg/325mg tablet PO PRN ×2 (02:01→10:13)
[2023-06-13 06:00] VITALS: BP 129/74; PULSE 114; RESP 22; TEMP 97.3; O2SAT 93
[2023-06-13 06:23] LABS: BASOPHILS % (AUTO) 0.1 % (0-1); EOSINOPHILS % (AUTO) 0 % (0-6); HEMATOCRIT 36.4 % (42.0-52.0); HEMOGLOBIN 11.9 g/dl (14.0-17.9); LYMPHOCYTES # (AUTO) 0.5 X10'3 (1.1-4.8); LYMPHOCYTES % (AUTO) 3.2 % (21-51); MEAN CORPUSCULAR HEMOGLOBIN 32.2 PG (27.0-31.0); MEAN CORPUSCULAR HGB CONC 32.7 g/dL (33.0-36.5); MEAN CORPUSCULAR VOLUME 98.6 FL (78-98); MEAN PLATELET VOLUME 9.9 FL (7.4-10.4); MONOCYTES # (AUTO) 0.5 X10'3 (0-0.9); MONOCYTES % (AUTO) 3.2 % (2-12); NEUTROPHILS # (AUTO) 14.7 X10'3 (1.8-7.7); NEUTROPHILS % (AUTO) 93.5 % (42-75); PLATELET COUNT 224 X10'3 (140-440); RED CELL DISTRIBUTION WIDTH 14.9 % (11.5-14.5); WHITE BLOOD COUNT 15.7 X10'3 (4.5-11.0)
[2023-06-13] MEDS: normal saline 1000ml 1,000 ML IV SCH (06:40)
--- NOTE | 2023-06-13 06:40 | NUR ---
Problems reprioritized. Patient report given, questions answered & plan of care reviewed with Alyssa KAMINSKI.
[2023-06-13 07:20] LABS: ALANINE AMINOTRANSFERASE 44 U/L (12-78); ALBUMIN 1.8 G/DL (3.4-5.0); ALBUMIN/GLOBULIN RATIO 0.5 (1.1-1.5); ALKALINE PHOSPHATASE 108 IU/L (46-116); ANION GAP 10 (8-16); ASPARTATE AMINO TRANSFERASE 31 U/L (10-37); BILIRUBIN,TOTAL 0.9 MG/DL (0.1-1.0); BLOOD UREA NITROGEN 62 MG/DL (7-18); BUN/CREATININE RATIO 33.5 (10.0-20.0); CALCIUM 8.2 MG/DL (8.5-10.1); CHLORIDE 106 MMOL/L (99-107); CREATININE 1.85 MG/DL (0.60-1.10); GLUCOSE 171 MG/DL (70-104); POTASSIUM 3.3 MMOL/L (3.5-5.1); SODIUM 144 MMOL/L (135-145); TOTAL CARBON DIOXIDE 27.8 MMOL/L (24-32); TOTAL PROTEIN 5.1 G/DL (6.4-8.2); eCRCL 24 ML/MIN; eGFR 35 ML/MIN
--- NOTE | 2023-06-13 07:40 | NUR ---
Patient in room PCU 3017. I have received report from Mnoserrat KAMINSKI and had the opportunity to ask questions and assume patient care.
[2023-06-13] MEDS ORDERED: potassium Cl 20 mEq SR tablet PO PRN ×4 (07:50→16:50)
[2023-06-13] MEDS ORDERED: potassium Cl 40MEQ/1/2NS 520ml 520 ML IV PRN ×3 (07:50→16:50)
--- NOTE | 2023-06-13 07:51 | NUR ---
Informed Dr Elliott of patient's low blood pressures, most recently 108/40 and 105/38. Dr Elliott advised to hold blood pressure medications and re-check blood pressure in 1 hour.
[2023-06-13] MEDS: docusate sod 100mg capsule PO SCH (08:00)
[2023-06-13] MEDS: lactose-reduced food (Ensure Enlive) - 237ml bottle PO SCH ×2 (08:00→13:36)
[2023-06-13] MEDS: folic acid/vitamin B complex w/vitamin C 0.8mg tablet PO SCH (08:00)
[2023-06-13] MEDS: carVEDilol 3.125mg tablet PO SCH (08:00)
[2023-06-13] MEDS ORDERED: K and/or MAG REPLACEMENT MC SCH (08:00)
[2023-06-13] MEDS: guaiFENesin ER 600mg tablet PO SCH (08:00)
[2023-06-13 08:38] VITALS: PULSE 107; RESP 18; O2SAT 91
[2023-06-13] MEDS: budesonide 0.5mg/2ml UD nebule IH SCH (08:38)
[2023-06-13 08:43] VITALS: PULSE 108; RESP 16
[2023-06-13] MEDS: sacubitril/valsartan 24mg-26mg tablet PO SCH (09:12)
[2023-06-13] MEDS: apixaban 2.5mg tablet PO SCH (09:12)
[2023-06-13] MEDS: levoTHYROXINE 75mcg tablet PO SCH (09:15)
[2023-06-13] MEDS: metoprolol succinate 25mg (24-HOUR) SR. Tablet PO SCH (09:16)
[2023-06-13] MEDS: furosemide 20 MG/2 ML vial IV SCH (09:21)
[2023-06-13] MEDS: methylPREDNISolone sod succ/PF 40mg inj. IV SCH (09:22)
[2023-06-13] MEDS: insulin Lispro (HumaLOG) vial - multi-dose SQ SCH ×2 (10:12→15:00)
[2023-06-13 11:00] VITALS: BP 85/51; PULSE 82; RESP 19; TEMP 97.8; O2SAT 98
[2023-06-13] MEDS ORDERED: magnesium 4gm in 100ml NS 100 ML IV PRN (16:50)
[2023-06-13] MEDS ORDERED: magnesium 2GM in 50ml NS 50 ML IV PRN (16:50)
[2023-06-13] MEDS ORDERED: magnesium Cl slow-release 64mg tablet PO PRN (16:50)
--- NOTE | 2023-06-13 17:56 | NUR ---
Pt transferred to [facility]. Report called to Cheri KAMINSKI. PIV removed, cannula intact. Tele discontinued. All belongings taken by patient's spouse. [facility] [employer] staff and taken to [facility] via [facility]. Pt stable for transfer.
== END 2023-06-13 17:10 | DRG 871 ==
LOC: ER 09:59 → ED HOLD 13:24 → PCU 3S 20:00
PROVIDERS: ADMIT Internal Medicine; ATTEND Internal Medicine
PROC: 0W993ZZ Drainage of Right Pleural Cavity, Percutaneous Approach (ICD-10-PCS; principal; 2023-06-08)
PROC: 0T9B80Z Drainage of Bladder with Drainage Device, Via Natural or Artificial Opening Endoscopic (ICD-10-PCS; 2023-06-09)
DX: A41.9 Sepsis, unspecified organism (principal); G93.41 Metabolic encephalopathy; I62.02 Nontraumatic subacute subdural hemorrhage; J69.0 Pneumonitis due to inhalation of food and vomit; N17.0 Acute kidney failure with tubular necrosis; J96.01 Acute respiratory failure with hypoxia; I50.30 Unspecified diastolic (congestive) heart failure; J91.8 Pleural effusion in other conditions classified elsewhere; I13.0 Hypertensive heart and chronic kidney disease with heart failure and stage 1 through stage 4 chronic kidney disease, or unspecified chronic kidney disease; S37.39XA Other injury of urethra, initial encounter; T83.83XA Hemorrhage due to genitourinary prosthetic devices, implants and grafts, initial encounter; I25.10 Atherosclerotic heart disease of native coronary artery without angina pectoris; J44.9 Chronic obstructive pulmonary disease, unspecified; N40.0 Benign prostatic hyperplasia without lower urinary tract symptoms; N18.30 Chronic kidney disease, stage 3 unspecified; E11.22 Type 2 diabetes mellitus with diabetic chronic kidney disease; F03.90 Unspecified dementia, unspecified severity, without behavioral disturbance, psychotic disturbance, mood disturbance, and anxiety; E78.00 Pure hypercholesterolemia, unspecified; Z66 Do not resuscitate; R65.20 Severe sepsis without septic shock; R31.9 Hematuria, unspecified; X58.XXXA Exposure to other specified factors, initial encounter; I48.91 Unspecified atrial fibrillation; Y83.8 Other surgical procedures as the cause of abnormal reaction of the patient, or of later complication, without mention of misadventure at the time of the procedure; Z88.5 Allergy status to narcotic agent; Z88.8 Allergy status to other drugs, medicaments and biological substances; Z79.01 Long term (current) use of anticoagulants; Z79.84 Long term (current) use of oral hypoglycemic drugs; Z79.899 Other long term (current) drug therapy; Z95.0 Presence of cardiac pacemaker; Y93.89 Activity, other specified; Y92.89 Other specified places as the place of occurrence of the external cause; Y99.8 Other external cause status
CPT/HCPCS: 32557; 36415; 36600; 70450; 71045; 71250; 76881; 76942; 80053; 80202; 81001; 82803; 82945; 82948; 83036; 83605; 83615; 83735; 83880; 84145; 84157; 85018; 85025; 87040; 87070; 87081; 89051; 92508; 92616; 93005; 94640; 94760; 97110; 97161; 97530; 99285; A4314; A4338; A4349; A4615; A5200; A6212; A6213; A6222; A6223; A6258; A6402; A6446; A6449; A6455; C1729; C1758; C1769; G0378; J0456; J0696; J1630; J1644; J1815; J1940; J2270; J2543; J2920; J2930; J3370; J3490; J7030; J7040; J7042; J7050